=== PATIENT | male | born 1970 | race Caucasian/White ===

== ENCOUNTER 2018-03-15 15:32 | Inpatient (IN) ==
--- NOTE | 2018-03-15 15:44 | Emergency Department Note ---
Disposition Clinical Impression: Acute occlusion of artery Disposition: Admitted As Inpatient Condition: Serious General Adult HPI - General Stated complaint: DVT Leg Time Seen by Provider: 03/15/18 15:32 - Related Data Allergies Allergy/AdvReac Type Severity Reaction Status Date / Time No Known Allergies Allergy Verified 02/11/18 21:12 Past Medical History - Past Medical History Medical history: Reports: non-contributory - Social History Smoking Status: Current every day smoker Smokeless Tobacco Status: No Alcohol use: Reports: occasionally Drug use: Reports: none Attestation Statement - Attestation Attestation: I examined this patient and my medical decision-making was reviewed with the Resident Physician. I agree with the documented findings, disposition and treatment plan as described except to the extent set forth below. 3-vessel acute LE arterial occlusion sent from [facility], accepted by Dr. Cordoba who asked the pt be brought to the ED to expedite the process. Hospitalist notified, he is on a heparin drip, is npo. Dr. Cordoba plans to take him to the OR from the ED.
[2018-03-15] MEDS ORDERED: *HR* FentaNYL (PF) 100 MCG/2 ML VIAL IVP ONE (15:56)
--- NOTE | 2018-03-15 15:57 | Emergency Department Note ---
Disposition Clinical Impression: Acute occlusion of artery Disposition: Admitted As Inpatient Condition: Serious Forms: ED Satisfaction Letter Time of Disposition: 16:15 Extremity Problem HPI - General Chief complaint: ED Extremity Problem,Nontraumatic Stated complaint: DVT Leg Time Seen by Provider: 03/15/18 15:32 Source: patient, EMS Mode of arrival: ambulatory Limitations: no limitations Nursing Notes Reviewed: Yes Vital Signs Reviewed: Yes - History of Present Illness HPI Narrative: I have re-performed and reviewed the history documented by the medical student, and I confirm its accuracy except as noted below Pain Scale: 10 - Related Data Allergies Allergy/AdvReac Type Severity Reaction Status Date / Time No Known Allergies Allergy Verified 02/11/18 21:12 All systems ED: reviewed and negative except as stated. Constitutional: Denies: fever Cardiovascular: Denies: chest pain Respiratory: Denies: cough, dyspnea Gastrointestinal: Denies: abdominal pain, nausea, vomiting, diarrhea Musculoskeletal: Reports: myalgia (Left leg pain) Integumentary: Denies: rash Neurological: Denies: headache, weakness, numbness, paresthesias Past Medical History - Past Medical History Attestation: Yes The following information was validated with the patient. Source: patient Medical history: Reports: non-contributory - Social History Smoking Status: Current every day smoker Smokeless Tobacco Status: No Alcohol use: Reports: occasionally Drug use: Reports: none Physical Exam - General Limitations: no limitations General appearance: alert, in no apparent distress - Head Head exam: atraumatic, normocephalic, normal inspection - Eye Eye exam: Present: normal appearance, PERRL, EOMI - ENT ENT exam: normal exam, normal oropharynx, mucous membranes moist - Neck Neck exam: Present: normal inspection, full ROM, trachea midline - Chest Chest inspection: Present: normal inspection, symmetric chest wall rise - Respiratory Respiratory exam: Present: normal lung sounds bilaterally - Cardiovascular Cardiovascular exam: Present: regular rate, normal rhythm, normal heart sounds - Extremities Exam Extremities exam: Present: other (Left lower extremity cool, pulses PT and DP absent. Pain to palpation of the calf, popliteal fossa on left.) - Neurological Exam Neurological exam: Present: alert, oriented X3. Absent: motor sensory deficit - Psychiatric Psychiatric exam: Present: normal affect, normal mood - Skin Skin exam: Present: warm, dry, intact, normal color Course Course Narrative: Imaging from outside facility shows occlusion of the left arterial supply of the left lower extremity. Dr. Cordoba with vascular surgery is aware and was consulted by outside facility. He has been paged upon patient's arrival. Outside hospital started heparin drip. Dr. Cordoba will come to bedside and see the patient and plans to take him to a large. Patient has been made nothing by mouth status at this time. He was given fentanyl for pain control. No additional intervention or labs requested by vascular at this time. Patient has been admitted to the hospitalist at this time. Patient will go straight to the OR from the emergency room and then to Hospital floor. Vital Signs Temperature 98.6 F 03/15/18 15:51 Pulse Rate 89 03/15/18 15:51 Respiratory Rate 16 03/15/18 15:51 Blood Pressure 137/104 03/15/18 15:51 O2 Sat by Pulse Oximetry 100 03/15/18 15:51 Temperature 98.6 F 03/15/18 15:51 Pulse Rate 89 03/15/18 15:51 Respiratory Rate 16 03/15/18 15:51 Blood Pressure 137/104 03/15/18 15:51 O2 Sat by Pulse Oximetry 100 03/15/18 15:51 Oxygen Delivery Oxygen Delivery Room Air Extremity Problem, Nontraumati - MDM Narrative Medical decision making narrative: Imaging from outside facility shows occlusion of the left arterial supply of the left lower extremity. Dr. Cordoba with vascular surgery is aware and was consulted by outside facility. He has been paged upon patient's arrival. Outside hospital started heparin drip. Dr. Cordoba will come to bedside and see the patient and plans to take him to a large. Patient has been made nothing by mouth status at this time. He was given fentanyl for pain control. No additional intervention or labs requested by vascular at this time. Patient has been admitted to the hospitalist at this time. Patient will go straight to the OR from the emergency room and then to Hospital floor. - Medical Records Medical records reviewed: Yes I reviewed the patient's medical records. S.B.A.R. - S.B.A.R. Situation: Demographics, MOA Background: Presenting Complaint, Relevant PMH, Meds, & Allergies Assessment: Vital Signs, Course and respsone to treatment, Exam Concerns, Patient/Family Expectation, Pertinant Lab Results Recommendation: Barrier(s) to disposition, Recommendation based on pending studies, treatments, or consults Autumn Report Given to: Dr. Yi Leyva Repor Time: 16:15
--- NOTE | 2018-03-15 16:00 | Emergency Department Note ---
Disposition Clinical Impression: Acute occlusion of artery Disposition: Admitted As Inpatient Condition: Fair General Adult HPI - General Stated complaint: DVT Leg Time Seen by Provider: 03/15/18 15:32 - History of Present Illness HPI Narrative: Erasmo is a 47 YO M with a PMH significant for lumbar spinal fusion and sciatica who presents with a chief complaint of pain in the left lower extremity. History comes from the patient and EMS. Erasmo has had pain in his left foot and calf for the last 2-3 weeks. He describes this pain as a sharp, shooting pain that is made worse with motion of his toes or ankle. during this time period Erasmo thought that his pain was secondary to sciatica, and he did not seek further treatment until the pain became unbearable today. He states that during this time his toes were "like icicles" and would not warm up even when soaking in warm water. He presented to an [facility] facility where distal pulses in his left foot could not be appreciated on palpation and were only faintly audible on doppler. A CTA with runoff was performed which revealed: occlusion of the posterior tibial occlusion at its origin, occlusion of the peroneal artery at the mid calf, occlusion of the anterior tibial artery at the proximal calf. As there was no vascular surgery availability at [facility], was heparinized and transferred to [facility] for further evaluation and treatment. Both the admitting hospitalist and the vascular surgeon were notified of this patient prior to arrival. On arrival, Erasmo admitted to continued exquisite pain in his left lower extremity. He denies any other symptoms including fever, chills, nausea, vomiting, chest pain or shortness of breath. Onset (ago): week(s) Location: left, lower extremity Pain Severity: severe Quality: aching, sharp Consistency: constant Improves with: nothing Worsens with: movement Associated symptoms: Denies: confusion, chest pain, cough, headaches, shortness of breath, syncope Treatments Prior to Arrival: other (Heparin bolus and drip) - Related Data Allergies Allergy/AdvReac Type Severity Reaction Status Date / Time No Known Allergies Allergy Verified 02/11/18 21:12 Constitutional: Reports: as per HPI. Denies: fever, chills, weakness ENT ED: Denies: congestion Cardiovascular: Denies: chest pain, palpitations, syncope Respiratory: Denies: cough, sputum production Gastrointestinal: Denies: abdominal pain, nausea, vomiting Genitourinary: Denies: urgency, dysuria, frequency Musculoskeletal: Reports: arthralgia (pain with movement of the joints of the left foot and ankle), myalgia Integumentary: Denies: rash Neurological: Reports: numbness (numbness in the left foot.). Denies: headache, weakness Past Medical History - Past Medical History Medical history: Reports: non-contributory - Social History Smoking Status: Current every day smoker Smokeless Tobacco Status: No Alcohol use: Reports: occasionally Drug use: Reports: none Physical Exam - General Limitations: no limitations General appearance: alert, in no apparent distress - Head Head exam: atraumatic, normocephalic, normal inspection - Eye Eye exam: Present: normal appearance, PERRL, EOMI - ENT ENT exam: normal exam, normal oropharynx, mucous membranes moist - Neck Neck exam: Present: normal inspection, full ROM, trachea midline - Chest Chest inspection: Present: normal inspection, symmetric chest wall rise - Respiratory Respiratory exam: Present: normal lung sounds bilaterally - Cardiovascular Cardiovascular exam: Present: regular rate, normal rhythm, normal heart sounds - Abdominal Exam Abdominal exam: Present: soft, Non-Tender. Absent: tenderness, distention, guarding, rebound, rigidity - Extremities Exam Extremities exam: Present: tenderness, other (left foot is cold, pulseless and tender to palpation. No ischemic necrosis noted. ). Absent: normal capillary refill - Neurological Exam Neurological exam: Present: alert, oriented X3, CN II-XII intact. Absent: motor sensory deficit - Psychiatric Psychiatric exam: Present: normal affect, normal mood (as described above. ) Course Course Narrative: Plan is for near direct admission to the operating room for likely vascular bypass procedure. Erasmo understands the plan of care and is amenable to the plan. Will treat his pain with IV fentanyl. Vital Signs Temperature 98.6 F 03/15/18 15:51 Pulse Rate 89 03/15/18 15:51 Respiratory Rate 16 03/15/18 15:51 Blood Pressure 137/104 03/15/18 15:51 O2 Sat by Pulse Oximetry 100 03/15/18 15:51 Temperature 98.6 F 03/15/18 15:51 Pulse Rate 89 03/15/18 15:51 Respiratory Rate 17 03/15/18 16:42 Blood Pressure 133/90 03/15/18 16:42 O2 Sat by Pulse Oximetry 100 03/15/18 16:42 Oxygen Delivery Oxygen Delivery Room Air
[2018-03-15] MEDS ORDERED: Albuterol 2.5 MG/3 ML NEBULIZER IH ONE (16:19)
[2018-03-15] MEDS ORDERED: Dexamethasone 4 MG/ML VIAL ONE ×2 (16:21→17:58)
[2018-03-15] MEDS ORDERED: Lidocaine -MPF 2% 2 ML VIAL ONE ×2 (16:21→17:58)
[2018-03-15] MEDS ORDERED: Ondansetron 4 MG/2 ML VIAL ONE ×2 (16:21→17:58)
[2018-03-15] MEDS ORDERED: *HR* Succinylcholine 200 MG/10 ML VIAL IVP ONE ×2 (16:21→17:58)
[2018-03-15] MEDS ORDERED: *HR* FentaNYL (PF) 100 MCG/2 ML VIAL ONE ×3 (16:21→17:57)
[2018-03-15] MEDS ORDERED: Lidocaine -MPF 4% 5 ML AMPUL ONE (16:21)
[2018-03-15] MEDS ORDERED: *HR* Propofol 200 MG/20 ML VIAL IVP ONE ×3 (16:21→20:38)
[2018-03-15] MEDS ORDERED: *HR* Midazolam HCl 2 MG/2 ML VIAL ONE (16:22)
--- NOTE | 2018-03-15 16:23 | Anesthesia Evaluation PreOp ---
Date of Encounter: 03/15/18 Time of Encounter: 16:30 - Past History Planned Operation: LLE Thrombectomy/Cutdown Cardiac History: Denies any Significant Hx Pulmonary History: Smoker BACK SEWER History: Other (Spinal Fusion Sciatica) Other Medical History: Denies Any Significant HX Anesthesia History: No Prior Anesthetic Complications Alcohol Use: occasionally Drug use: none Medications and Allergies Allergy/AdvReac Type Severity Reaction Status Date / Time No Known Allergies Allergy Verified 02/11/18 21:12 - Meds/Allergy Pre-op Review Medications Reviewed: Yes Allergies Reviewed: Yes Beta Blockers on Current Med List: No Anesthesia Exam O2 Sat Height 1.75 m Weight 74.843 kg O2 Sat by Pulse Oximetry 100 Vital Signs Temp Pulse Resp BP Pulse Ox 98.6 F 89 16 137/104 100 03/15/18 15:51 03/15/18 15:51 03/15/18 15:51 03/15/18 15:51 03/15/18 15:51 Height: 5'9 Weight: 165 lbs NPO (# of Hours): MN Pain Scale: 2 - HEENT Pupil (Motor): Pupils equal, EOMI Mallampati: II Teeth: Poor dentition Oral Opening: Greater than 3 - BACK SEWER LOC: Oriented BACK SEWER Motor: Normal RUE, Normal LUE, Normal RLE, Normal LLE, Normal Face BACK SEWER Sensory: Normal: RUE, LUE, RLE, Face, Deficit: LLE - Cardiac Rhythm: Regular Murmur: None JVD: No Carotid Bruit: No - Pulmonary Breath Sounds: bilateral Clear Respiratory Effort: Symmetrical Anesthesia Assess/Plan ASA Score: 2, E Level of consciousness: Cooperative Anesthetic Plan: General Autologous Blood: No Monitoring Plan: Standard Monitors Recovery Plan: PACU (Discussed GA, agrees to proceed)
--- NOTE | 2018-03-15 16:30 | Vascular/Endovasc Consult Note ---
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 By CT scan from outside hospital report indicates functional occlusion of proximal tibial system indicating embolization to the distal popliteal and proximal tibial system. Patient has limb threatening ischemia. Because of the severity of his ischemia recommended emergency surgery. An IV heparin drip has been initiated at the outside hospital and this will continue during surgery. Patient will go to the operating room for popliteal and tibial embolectomy. Anticipate patient has either an atrial source of the embolus or a thoracic aortic source of the embolus. Further workup per medical service. (2) Tobacco abuse Current Visit: Yes Status: Acute Patient has long-standing history of tobacco abuse - History of Present Illness Consult date: 03/15/18 Consult reason: Ischemic left leg Chief complaint: Left foot and leg pain History of present illness: Mr. Teresa is a 47 year old male Was referred from [facility] emergency room for evaluation of left lower extremity ischemia. The patient presented there earlier today with significant and unremitting left lower extremity pain particularly in the left foot and lower leg. The patient states that this started approximately 2 weeks ago. It is been progressive. He is unable to rest or sleep. He has pain 24 hours a day. He had had previous spinal surgery and thought initially that this was due to a spinal condition. He denies any previous lower extremity vascular concerns. The patient denies any history of claudication or previous embolization. The patient had no difficulties or limitations in his walking prior to this event. The patient denies any history of coagulation disorder. He denies any family history of coagulation disorder. He denies any history of arrhythmia or cardiac problems. At the referring emergency room the patient had an EKG that was normal and without signs of arrhythmia. He had had a number of blood tests were essentially unremarkable. He had a CT scan of the abdominal aorta with bilateral lower extremity runoff. The images were unfortunately not sent with the patient's do not have them to review personally but I have the report. The report states that the left trifurcation is occluded. This involves the proximal to midportion of the calf. The popliteal artery proximal to this is patent. There are no abnormal findings in the right lower extremity. The patient denies any symptoms in the right lower extremity. Other findings on the CT scan demonstrate sigmoid diverticulosis. A 5.2 cm right inguinal lymphadenopathy versus fluid collection. Moderate atherosclerotic calcification involving the infrarenal aorta. The patient is an active tobacco smoker and smokes at least 1-1/2 packs of cigarettes a day. Past Med Surg Social Fam HX - Past Medical History Medical history: non-contributory - Past Surgical History Surgical History: orthopedic, other (Spine surgery) - Social History Smoking Status: Current every day smoker Smokeless Tobacco Status: No Alcohol use: occasionally Drug use: none Medications and Allergies Allergy/AdvReac Type Severity Reaction Status Date / Time No Known Allergies Allergy Verified 02/11/18 21:12 All Systems Review: The remainder of the systems were reviewed and are negative Exam Vital Signs, Last 4 Hours Temp Pulse Resp BP Pulse Ox 03/15/18 15:51 98.6 F 89 16 137/104 100 General: Present: Conversant, Other (Patient is seen in the emergency room at bed #7. He is in a semi- position on the emergency room cart.) HEENT: Present: Atraumatic, Normocephaly, Trachea midline Neck: Absent: JVD, Left Carotid bruit, Right Carotid bruit, Midline deformity, Tracheal deviation Cardiac: Present: Reg Rate and Rhythm, Normal S1 and S2, No Murmur. Absent: Irregular Rhythm Lungs: Present: Normal Breath Sounds, No Wheeze, Rales, Rhonchi Neuro: Present: Alert and responsive, No focal deficits noted, Cranial nerves grossly intact, Other (Painful left calf and foot and ankle to light touch and manipulation.) Vascular: Present: Normal capillary refill, Pulse, absent (Patient has no palpable left pedal pulses.), Pulse, normal (On right lower extremity and lower extremity), Cyanosis, Color/Temperature (Left foot and left foot is cool.). Absent: Edema, Surgical incisions, Amputation(s) Skin: Present: No rashes noted on visualized skin. Absent: Wound/ulcer(s) Consult Discharge Plan - Plan Referrals: NONE,PCP [Primary Care Provider] -
[2018-03-15] MEDS ORDERED: Heparin 1,000 UNITS/500 mL 500 ML ONE (16:33)
--- NOTE | 2018-03-15 17:16 | Internal Med History&Physical ---
Date of Encounter: 03/15/18 Time of Encounter: 16:30 Assessment and Plan (1) Ischemic pain of left foot Current visit: Yes Status: Acute Patient will be taken to or by surgeon for intervention. (2) Acute occlusion of artery Current visit: Yes Status: Acute Patient will be taken to [facility] surgeon to or for intervention. (3) HTN (hypertension) Current visit: Yes Status: Acute In process of obtaining [facility] [place] to continue blood pressure medications. Qualifiers: Hypertension type: essential hypertension Qualified Code(s): I10 - Essential (primary) hypertension (4) HLD (hyperlipidemia) Current visit: Yes Status: Acute In process of obtaining patient's medication list to start patient on medications. Qualifiers: Hyperlipidemia type: unspecified Qualified Code(s): E78.5 - Hyperlipidemia, unspecified (5) Tobacco abuse Current visit: Yes Status: Acute Nicotine patch as discussed with the patient. Smoking cessation counseling performed. Patient agrees not to smoke. DVT prophylaxis to be determined based on postop anticoagulation use. Internal Medicine - H&P: HPI Chief complaint: l Leg/foot pain Admitted From: Intrahospital Transfer Plans for Post Hospital Care: Home History of present illness: Mr. Teresa is a 47 year old male with a previous medical history off hypertension, hypercholesterolemia, smoking, nondiabetic who was transferred from [facility] with complaints of 2 weeks of progressive left leg and foot pain with numbness and coolness. The patient states that he attributed these symptoms to his chronic Jordin and did not seek early medical intervention. He went to [facility] today where they found he had vascular occlusion proximal to the left leg trifurcation arteries. The patient had labs at the referring ER where the EKG was normal and the white count was high at 13.6. The renal panel was unremarkable with a slightly elevated calcium of 10.3. The patient denies any chest pain or shortness of breath. He denies any previous adverse events to anesthesia. The patient is a one pack per day smoker. Past Med Surg Social Fam HX - Past Medical History Medical history: non-contributory - Past Surgical History Surgical History: orthopedic, other (Spine surgery) - Social History Smoking Status: Current every day smoker Smokeless Tobacco Status: No Alcohol use: occasionally Drug use: none Internal Medicine - H&P: Meds Allergy/AdvReac Type Severity Reaction Status Date / Time No Known Allergies Allergy Verified 02/11/18 21:12 All Systems PM: A 10-system review of systems was performed and is negative for pertinent findings except as documented above in the HPI. - Constitutional Vitals: Temp Pulse Resp BP Pulse Ox 98.6 F 89 17 133/90 100 03/15/18 15:51 03/15/18 15:51 03/15/18 16:42 03/15/18 16:42 03/15/18 16:42 General appearance: Present: mild distress, A&O X 3 - Head Head exam: Present: atraumatic, normocephalic - Eye Eye exam: Present: PERRL, conjuntiva pink, sclera anicteric Pupils: Present: PERRL - Neck Neck exam general surgery: Present: supple, trachea midline. Absent: lymphadenopathy - Respiratory Respiratory exam: Present: decreased breath sounds, CTAB. Absent: accessory muscle use, rales, rhonchi, wheezes - Cardiovascular Cardiovascular exam: Present: RRR, +S1, +S2. Absent: diastolic murmur, systolic murmur - GI/Abdominal GI/Abdominal exam: Present: normal bowel sounds, soft, no peritoneal signs. Absent: distended, tenderness - Extremities Exam Additional comments: The left foot and ankle pulses could not be assessed with certainty due to patient being restless in that foot. The toes look slightly cyanotic and are very cool to touch. The right foot exam is within normal limits.. - Neurological Exam Neurological exam: Present: CN II-XII intact, oriented X3, no focal deficits. Absent: pronater drift, facial droop, speech deficit Internal Med - H&P Results - Labs Labs: Labs as described above, these were done at [facility].
[2018-03-15] MEDS ORDERED: Acetaminophen IV 1,000 MG/100 ML INFUS..BTL ONE (17:20)
[2018-03-15] MEDS ORDERED: *HR* Rocuronium Bromide 50 MG/5 ML VIAL ONE (17:58)
[2018-03-15] MEDS ORDERED: *HR* Promethazine 25 MG/ML VIAL IVP PRN (18:08)
[2018-03-15] MEDS ORDERED: *HR* FentaNYL (PF) 100 MCG/2 ML VIAL IVP PRN (18:08)
[2018-03-15] MEDS ORDERED: *HR* OxyCODONE Immed Rel 5 MG TABLET PO PRN (18:08)
[2018-03-15] MEDS ORDERED: *HR* Morphine 10 MG/ML VIAL ONE (19:33)
--- NOTE | 2018-03-15 20:47 | Operative Note ---
Date of procedure: 03/15/18 Pre-op diagnosis: limb threatening ischemia of left lower extremity Post-op diagnosis: same Procedure: left tibioperoneal trunk endarterectomy with bovine patch angioplasty 2 and 3 Turkish catheter embolectomy of left anterior tibial, posterior tibial, and peroneal arteries Complications: 0 Anesthesia: KAYLAA Surgeon: Eliud Cordoba Was there an elementary assistant principal present: No Estimated blood loss (cc): 200 Specimen: yes Condition: stable Disposition: PACU Procedure in Detail: History Mr. Erasmo Teresa is a 47-year-old white male that was seen in emergency consultation in the emergency room earlier this afternoon because of limb t hreatening ischemia of the left lower extremity. Patient states that about 2 weeks ago he began having symptoms of the left leg and this has been progressive. It is been so painful he cannot rest or sleep. He was seen originally today at [facility] in [place]. He was referred to [place] for further care because a CTA scan was obtained which showed occlusion of the tibial vessels of the left lower extremity. The patient does not have any obvious history or explanation for this ischemia. He denies any right lower extremity symptoms and had no antecedent history of claudication. Procedure After informed consent was obtained the patient was taken from the emergency room to the operating room. General endotracheal anesthesia was established. The left lower extremity was sterilely prepped and draped. A timeout protocol was observed. An incision was made at the proximal calf below the knee. Dissection was carried down to the popliteal artery and its bifurcation area the popliteal artery was soft and had an excellent pulse. There are no pulses distally. The tibial peroneal trunk was distended and bluish in color. Control obtained of all 3 of the tibial vessels. Heparin which had been started at [facility] and had been continued in the emergency room was also being continued in the operating room. An additional bolus 1000 units of heparin was given now and then the below-knee popliteal artery was clamped. A longitudinal arteriotomy was made over the tibial peroneal trunk. This vessel was distended. Evaluation here revealed a reddish brownish material that appeared a combination of both acute and chronic clot as well as organized material. It is not clear whether this represents an embolus or thrombus but due to his history I would assume that this is an embolic event. An endarterectomy was then performed and the arteriotomy need be a extended. The entire length of the tibial peroneal trunk was open. The thrombus and other material was then endarterectomized and submitted for specimen. A 2 and 3 Turkish Freida catheter with an unemployed. These were selectively placed into the anterior tibial, posterior tibial, and peroneal arteries. A large amount of both chronic and fresh thrombus and organized material was removed from the vessels. It should be noted that the catheter could be. Past to the level of the foot and both anterior tibial and posterior tibial arteries. The peroneal artery catheter could be passed to the level of the terminus of the peroneal artery at the malleolar level. Backbleeding was established from both anterior tibial and peroneal artery. There is no backbleeding established from the Yadi tibial artery. These areas were flushed. A second attempt at embolectomy was made. With this accomplished a bovine pericardial patch angioplasty was then performed. This was sewn into position using 2 6-0 Prolene sutures over the tibial peroneal trunk. After appropriate backbleeding and flushing the popliteal artery was opened. Excellent inflow and a strong normal pulse was observed through the popliteal artery. Doppler signals were then made. Strong monophasic signals were identified in all the tibial vessels in the level of the wound. However, there were no Doppler signals identified at the level of the ankle. The wound was then irrigated. Marcaine was infiltrated into the wound. The wound was then closed in layers using absorbable suture. There were no intraoperative complications. The patient tolerated procedure well. The patient was taken from the operating room to the recovery room following surgery. The IV heparin drip will be continued overnight. Patient will have an echocardiogram tomorrow. There is nothing further from a vascular surgery perspective that can be offered to this patient as the embolic or thrombotic event appears to be rather diffuse and subacute to chronic. It should be noted that there were no findings of atherosclerotic disease in the vessels observed during surgery.
[2018-03-15] MEDS ORDERED: Ondansetron 4 MG/2 ML VIAL IVP PRN (21:20)
[2018-03-15] MEDS ORDERED: Naloxone 0.4 MG/ML INJ IVP PRN (21:20)
--- NOTE | 2018-03-15 21:24 | Anesthesia Evaluation Post Op ---
Date of Encounter: 03/15/18 Time of Encounter: 21:23 - Discharge PostOp Status: Transfer Patient to floor (Patient's vital signs have been reviewed. Patient is stable postoperatively and has adequately recovered from anesthesia. Patient is determined to have stable airway patency and respiratory function including respiratory rate and oxygen saturation. Patient has a stable heart rate, blood pressure and adequate hydration. Patients mental status is acceptable. Patients temperature is appropriate. Pain and nausea are adequately controlled.)
[2018-03-15] MEDS: *HR* OxyCODONE Immed Rel 5 MG TABLET PO PRN (21:50)
[2018-03-15] MEDS ORDERED: Perflutren Lipid Microsphere 1.3 ML in 0.9 % Sodium Chloride 8.7 ML IVP ONE (22:41)
[2018-03-16] MEDS ORDERED: *HR* Heparin 5,000 UNIT/ML VIAL IVP PRN ×2 (00:52)
[2018-03-16] MEDS: Heparin 25,000 UNIT/500 ML D5W 25,000 UNIT/500 ML BAG IVC SCH ×2 (02:54→07:43)
[2018-03-16] MEDS: *HR* OxyCODONE Immed Rel 5 MG TABLET PO PRN ×3 (04:36→18:58)
[2018-03-16] MEDS: Nicotine 21 MG PATCH.TD24 TD SCH (07:41)
[2018-03-16] MEDS: *HR* HYDROcodone/Acet 5/325 mg TABLET PO PRN ×3 (07:42→22:17)
[2018-03-16] MEDS: Acetaminophen 325 MG TABLET PO PRN (08:44)
[2018-03-16] MEDS ORDERED: Nicotine 21 MG PATCH.TD24 TD SCH (09:00)
--- NOTE | 2018-03-16 09:50 | Internal Med Progress Note ---
Hospitalist Progress Note - Encounter Date of Encounter: 03/16/18 Time of Encounter: 08:30 - Subjective Interval History: Patient seen and examined today. He is feeling better than yesterday. He has bearable pain in the left foot after surgery. - Exam Vitals: Temp Pulse Resp BP Pulse Ox 97.4 F L 95 16 99/80 98 03/16/18 07:49 03/16/18 07:49 03/16/18 07:49 03/16/18 07:49 03/16/18 08:00 Exam: General appearance: Present: mild distress, A&O X 3 - Head Head exam: Present: atraumatic, normocephalic - Eye Eye exam: Present: PERRL, conjuntiva pink, sclera anicteric Pupils: Present: PERRL - Neck Neck exam general surgery: Present: supple, trachea midline. Absent: lymphadenopathy - Respiratory Respiratory exam: Present: decreased breath sounds, CTAB. Absent: accessory muscle use, rales, rhonchi, wheezes - Cardiovascular Cardiovascular exam: Present: RRR, +S1, +S2. Absent: diastolic murmur, systolic murmur - GI/Abdominal GI/Abdominal exam: Present: normal bowel sounds, soft, no peritoneal signs. Absent: distended, tenderness - Extremities Exam Additional comments: The left foot and ankle pulses are present and 1+. The left toes look normal in color and normal temperature normal neurovascular. The left leg has a dressing over the incision and no active bleeding.. The right foot exam is within normal limits.. - Neurological Exam Neurological exam: Present: CN II-XII intact, oriented X3, no focal deficits. Absent: pronater drift, facial droop, speech deficit - Assessment and Plan (1) Ischemic pain of left foot Current Visit: Yes Status: Acute Assessment and Plan: Improved after vascular surgery. Continue current medications. Continue IV heparin and cefoxitin. (2) Acute occlusion of artery Current Visit: Yes Status: Acute Assessment and Plan: Status post left tibioperoneal trunk endarterectomy with bovine patch angioplasty 2 and 3 Omani catheter embolectomy of left anterior tibial, posterior tibial, and peroneal arteries. Patient doing well. (3) HTN (hypertension) Current Visit: Yes Status: Acute Assessment and Plan: Continue to monitor since patient has low normal blood pressure. No antihypertensives needed. (4) HLD (hyperlipidemia) Current Visit: Yes Status: Acute Assessment and Plan: Patient was previously taking atorvastatin 80 mg per day. Would restart if cleared by vascular surgeon. (5) Tobacco abuse Current Visit: Yes Status: Acute Assessment and Plan: Currently patient absent. Not needing nicotine replacement therapy. - Time Spent with Patient Total time spent is greater than 50% in coordination of care (as documented) at patient's floor/unit and/or counseling patient: Internal Medicine: Result - Impressions Impressions Echocardiogram 03/15/18 20:38 Impressions: LVEF 60%. Normal LV chamber size, wall thickness and function. Mild left ventricular diastolic dysfunction. Normal right ventricular structure and function. No evidence of pulmonary hypertension. No significant valvular dysfunction. No cardiac source of emboli identified. Findings: Study Quality * Technically adequate exam. ECG Findings * Normal sinus rhythm. Left Ventricle * LVEF 60%. * Normal LV chamber size, wall thickness and function. * Mild left ventricular diastolic dysfunction. Right Ventricle * Normal right ventricular structure and function. Left Atrium * Normal left atrial size. Right Atrium * Normal right atrial size. Interatrial Septum * Interatrial septum not well evaluated. Aortic Valve * Aortic valve not well visualized. * No aortic regurgitation. * No aortic stenosis. Mitral Valve * Normal mitral valve structure and function. * No mitral regurgitation. * No mitral stenosis. Tricuspid Valve * Normal tricuspid valve structure and function. * Trace tricuspid regurgitation. * No evidence of pulmonary hypertension. Pulmonic Valve * Pulmonic valve not well visualized. * No pulmonic regurgitation. Aorta * Normally sized aortic root. Pericardium * The pericardium appears normal. IVC * Normal IVC dimensions and inspiratory collapse. Pulmonary Artery * Normal visualized portions of the main pulmonary artery. Consult Discharge Plan - Plan Referrals: NONE,PCP [Primary Care Provider] - (3) HTN (hypertension) Qualifiers: Hypertension type: essential hypertension Qualified Code(s): I10 - Essential (primary) hypertension (4) HLD (hyperlipidemia) Qualifiers: Hyperlipidemia type: unspecified Qualified Code(s): E78.5 - Hyperlipidemia, unspecified
[2018-03-16] MEDS ORDERED: Isovue-370 500 ML INFUS..BTL IV ONE (12:50)
[2018-03-16 13:34] LABS: Basophils # 0.1 K/mcL (0.0-0.2); Basophils % 0.4 %; Eosinophils # 0.2 K/mcL (0.0-0.6); Eosinophils % 0.7 %; Hematocrit 36.5 % (37.5-50.1); Hemoglobin 11.9 g/dL (12.9-16.9); Immature Granulocytes % 0.6 % (0-4); Lymphocytes # 5.1 K/mcL (0.6-4.6); Lymphocytes % 23.4 %; Mean Corpuscular HGB Conc 32.6 g/dL (31.6-35.5); Mean Corpuscular Hemoglobin 27.5 pg (28.0-33.3); Mean Corpuscular Volume 84.3 fL (83.0-100.0); Mean Platelet Volume 9.2 fL (9.4-12.4); Monocytes # 1.3 K/mcL (0.0-1.3); Monocytes % 6.1 %; Neutrophils # 14.9 K/mcL (1.6-8.9); Platelet Count 432 K/mcL (140-400); Red Blood Count 4.33 M/mcL (4.19-5.50); Red Cell Distribution Width 13.3 % (11.5-14.5); Segmented Neutrophils % 68.8 %
[2018-03-16 13:52] LABS: BUN/Creatinine Ratio 15 (6-26); Blood Urea Nitrogen 14 mg/dL (6-20); Calcium 9.4 mg/dL (8.6-10.3); Carbon Dioxide 27 mEq/L (23-29); Chloride 102 mEq/L (98-107); Glucose 127 mg/dL (70-105); Osmolality,Calculated 284 (280-300); Sodium 136 mEq/L (136-145); eGFR For Non-African Americans > 60 (> 60)
--- NOTE | 2018-03-16 16:30 | Vascular/[facility] Progress Note ---
Date of Encounter: 03/16/18 Time of Encounter: 12:00 - Assessment and plan (1) Ischemic pain of left foot Current Visit: Yes Status: Acute Patient's vascular status is improved but is not normal to the left foot. The color and temperature and Doppler signals are better than preop. However on the basis of the anatomic findings there is still residual thrombus in the distal tibial system. Of note at the time of surgery I could identify no obvious etiology for the thrombotic event. There was no popliteal artery aneurysm, vascular dissection, or significant arterial stenosis. There was no calcification of the vessel. The vessel itself was relatively soft without findings of intraluminal atherosclerotic disease. At this point etiology of this thrombotic episode remains unknown and for the time being would still be viewed as an embolic event. I've ordered a CT angiogram of the chest to rule out occult thoracic disease or aortic ulcers. If this examination is unremarkable I would recommend consultation with hematology for a thrombophilia evaluation. Patient would benefit from indefinite anticoagulation as an outpatient. I would not convert to an oral agent until after the patient is seen by hematology. Due to the patient's limitation in his ambulation I've also ordered physical therapy consultation. Dr Schmitt is covering vascular surgery call for this weekend. (2) Tobacco abuse Current Visit: Yes Status: Acute Patient has long-standing history of tobacco abuse - Subjective Interval history: Patient is postoperative day 1 from an extensive tibial artery embolectomy and tibial peroneal trunk endarterectomy. Patient states that he still has pain in his leg though it is better than what it was prior to surgery. He feels his left foot is warmer. He has difficulties bearing weight. An echocardiogram was performed last night after surgery which was negative for obvious source of embolus or cardiac pathology. Therefore have recommended a CT angiogram of the chest be performed. If the CT angiogram of the chest is negative I would recommend consultation with hematology for a thrombophilia workup. Vital Signs, Last 4 Hours Temp Pulse Resp BP Pulse Ox 03/16/18 16:15 98.2 F 95 18 140/96 100 - Physical Examination General: Present: Conversant HEENT: Present: Atraumatic Neck: Absent: JVD Neuro: Present: Alert and responsive Vascular: Present: Normal capillary refill, Pulse, absent (Patient has no palpable pulses at the left ankle.), Pulse, normal (Palpable left popliteal and femoral pulse), Color/Temperature (The color and temperature of the left foot is markedly improved from preop. The patient has 2-3 second capillary refill.), Surgical incisions (Patient has a dry dressing over the left below-knee popliteal incision), Other (Patient has Doppler signals present over the peroneal, dorsalis pedis, and posterior tibial artery. The posterior tibial artery signal is the weakest signal of the 3.) Skin: Present: No rashes noted on visualized skin Results 03/16/18 13:01 03/16/18 13:01 Lab Results, Last 24 hours 03/16/18 03/16/18 13:01 13:01 WBC 21.6 H Hgb 11.9 L Hct 36.5 L Plt Count 432 H Sodium 136 Potassium 4.0 Chloride 102 Carbon Dioxide 27 BUN 14 Creatinine 0.93 Glucose 127 H Calcium 9.4 - Imaging / Other Tests Echo: report reviewed (No structural abnormalities of the cardiac valves or cardiac chambers. No obvious explanation for embolic event to the left lower extremity on echocardiogram.) Consult Discharge Plan - Plan Referrals: NONE,PCP [Primary Care Provider] -
[2018-03-17 01:34] LABS: Basophils # 0.1 K/mcL (0.0-0.2); Basophils % 0.6 %; Eosinophils # 0.2 K/mcL (0.0-0.6); Eosinophils % 1.5 %; Hematocrit 32.9 % (37.5-50.1); Immature Granulocytes % 0.3 % (0-4); Lymphocytes # 3.8 K/mcL (0.6-4.6); Lymphocytes % 26.2 %; Mean Corpuscular HGB Conc 33.4 g/dL (31.6-35.5); Mean Corpuscular Hemoglobin 27.9 pg (28.0-33.3); Mean Corpuscular Volume 83.5 fL (83.0-100.0); Monocytes # 1.2 K/mcL (0.0-1.3); Monocytes % 8.4 %; Neutrophils # 9.1 K/mcL (1.6-8.9); Platelet Count 346 K/mcL (140-400); Red Blood Count 3.94 M/mcL (4.19-5.50); Red Cell Distribution Width 13.4 % (11.5-14.5)
[2018-03-17 01:57] LABS: BUN/Creatinine Ratio 15 (6-26); Blood Urea Nitrogen 13 mg/dL (6-20); Calcium 8.9 mg/dL (8.6-10.3); Carbon Dioxide 24 mEq/L (23-29); Chloride 107 mEq/L (98-107); Cholesterol 176 mg/dL (< 200); Glucose 105 mg/dL (70-105); HDL Cholesterol 44 mg/dL (40-59); LDL Cholesterol,Calculated 108 mg/dL (0-99); Osmolality,Calculated 284 (280-300); Potassium 3.7 mEq/L (3.5-5.1); Sodium 137 mEq/L (136-145); Triglycerides 121 mg/dL (< 150); eGFR For Non-African Americans > 60 (> 60)
[2018-03-17] MEDS: *HR* OxyCODONE Immed Rel 5 MG TABLET PO PRN ×3 (03:11→15:02)
[2018-03-17] MEDS: *HR* HYDROcodone/Acet 5/325 mg TABLET PO PRN ×3 (06:43→20:04)
[2018-03-17] MEDS: Heparin 25,000 UNIT/500 ML D5W 25,000 UNIT/500 ML BAG IVC SCH (06:48)
[2018-03-17] MEDS: Nicotine 21 MG PATCH.TD24 TD SCH (09:03)
[2018-03-17] MEDS: Acetaminophen 325 MG TABLET PO PRN (10:00)
--- NOTE | 2018-03-17 12:31 | Vascular/[facility] Progress Note ---
Date of Encounter: 03/18/18 Time of Encounter: 12:29 - Assessment and plan (1) Ischemic pain of left foot Current Visit: Yes Status: Resolved 47-year-old white male presents was two-week history of ischemic left lower extremity. His echocardiogram was within normal limits. His CT angiogram of the chest was normal. The patient does not have popliteal artery aneurysm. He complains of slight pain around the left knee. He has no pedal pulses but good strong signals as suspect that his left peroneal artery is patent. His foot is well-perfused. He is fully anticoagulated. He does not have a compartment syndrome. I will recommend hematology consultation. The patient will most likely needs to be anticoagulated for life. I will wrap his left leg with an Jose bandage between the toes and the knee. We will get physical therapy to ambulate him with a walker. (2) Tobacco abuse Current Visit: Yes Status: Acute Counseled about smoking cessation. - Subjective Interval history: Status post left tibioperoneal embolectomy for ischemic left lower extremity. The patient denies any pain in his left foot. He is able to move his toes. He is able to flex and extend his left ankle. Vital Signs, Last 4 Hours Temp Pulse Resp BP Pulse Ox 03/17/18 11:43 98.5 F 103 17 122/83 98 - Physical Examination General: Present: No Apparent Distress Cardiac: Present: Reg Rate and Rhythm Lungs: Present: Normal Breath Sounds Neuro: Present: Alert and responsive, Motor nerves grossly intact Vascular: Present: Normal capillary refill, Capillary refill delayed, Pulse, absent, Other (The left calf and foot are warm. There is no dorsalis pedis or posterior tibial pulses. The patient has biphasic Doppler signals.) Skin: Present: No rashes noted on visualized skin Musculoskeletal: Present: Other (The catheter is soft. There is no compartment syndrome.) Results 03/17/18 01:16 03/17/18 01:16 Lab Results, Last 24 hours 03/16/18 03/16/18 03/17/18 13:01 13:01 01:16 WBC 21.6 H 14.4 H Hgb 11.9 L 11.0 L Hct 36.5 L 32.9 L Plt Count 432 H 346 Sodium 136 Potassium 4.0 Chloride 102 Carbon Dioxide 27 BUN 14 Creatinine 0.93 Glucose 127 H Calcium 9.4 03/17/18 01:16 WBC Hgb Hct Plt Count Sodium 137 Potassium 3.7 Chloride 107 Carbon Dioxide 24 BUN 13 Creatinine 0.87 Glucose 105 Calcium 8.9 - Imaging / Other Tests Echo: report reviewed Angiogram: report reviewed CT/CTA: report reviewed - EKG Interpretation EKG results: personally reviewed Consult Discharge Plan - Plan Referrals: NONE,PCP [Primary Care Provider] -
[2018-03-17] MEDS: Aspirin 325 MG TABLET PO SCH (13:26)
--- NOTE | 2018-03-17 17:46 | Internal Med Progress Note ---
Hospitalist Progress Note - Encounter Date of Encounter: 03/17/18 Time of Encounter: 08:00 - Subjective Interval History: Patient seen and examined today. He is feeling better than yesterday. He has bearable pain in the left foot after surgery. Discussed with patient need to stop smoking completely and continuing the cholesterol medicines. Pt c/o ins omnia and requests medicine for it. I did call hematology and talk to Dr. Vaz for consult. He recommended seeing patient as an outpatient since at this point patient is on IV heparin. He recommended discharging the patient on Xarelto. He recommended continuing the IV heparin to close to discharge. He recommended labs such as Factor V Leiden, Lupus anticoag profile, Beta 2 Glycoprotein, Prothrombi [id number] Mutation which he will need at the out pt visit. These have been ordered. - Exam Vitals: Temp Pulse Resp BP Pulse Ox 98.1 F 103 20 147/95 100 03/17/18 14:58 03/17/18 14:58 03/17/18 14:58 03/17/18 14:58 03/17/18 14:58 Exam: General appearance: Present: mild distress, A&O X 3 - Head Head exam: Present: atraumatic, normocephalic - Eye Eye exam: Present: PERRL, conjuntiva pink, sclera anicteric Pupils: Present: PERRL - Neck Neck exam general surgery: Present: supple, trachea midline. Absent: lymphadenopathy - Respiratory Respiratory exam: Present: decreased breath sounds, CTAB. Absent: accessory muscle use, rales, rhonchi, wheezes - Cardiovascular Cardiovascular exam: Present: RRR, +S1, +S2. Absent: diastolic murmur, systolic murmur - GI/Abdominal GI/Abdominal exam: Present: normal bowel sounds, soft, no peritoneal signs. Absent: distended, tenderness - Extremities Exam Additional comments: The left foot and ankle pulses are present and 1+. The left toes look normal in color and normal temperature normal neurovascular. The right foot exam is within normal limits.. - Neurological Exam Neurological exam: Present: CN II-XII intact, oriented X3, no focal deficits. Absent: pronater drift, facial droop, speech deficit - Assessment and Plan (1) Ischemic pain of left foot Current Visit: Yes Status: Resolved Assessment and Plan: Status post left tibioperoneal trunk endarterectomy with bovine patch willa oplasty 2 and 3 Jordanian catheter embolectomy of left anterior tibial, posterior tibial, and peroneal arteries. Patient doing well. Cont IV heparin, HLD tx and smoking cessation. (2) Acute occlusion of artery Current Visit: Yes Status: Acute Assessment and Plan: as above. (3) HTN (hypertension) Current Visit: Yes Status: Acute Assessment and Plan: Continue to monitor and tx with IV hydralazine if needed for SBP > 150 mm Hg. (4) HLD (hyperlipidemia) Current Visit: Yes Status: Acute Assessment and Plan: Lipitor (5) Tobacco abuse Current Visit: Yes Status: Acute Assessment and Plan: Advised cessation. NRT. Ambien for insomnia. DVT Prophylaxis: On IV Heparin drip. - Time Spent with Patient Total time spent is greater than 50% in coordination of care (as documented) at patient's floor/unit and/or counseling patient: Internal Medicine: Result - Labs CBC & Chem 7: 03/17/18 01:16 03/17/18 01:16 Labs: Short CBC 03/17/18 Range/Units 01:16 WBC 14.4 H (4.3-11.1) K/mcL Hgb 11.0 L (12.9-16.9) g/dL Hct 32.9 L (37.5-50.1) % Plt Count 346 (140-400) K/mcL Neutrophils # 9.1 H (1.6-8.9) K/mcL BMP 03/17/18 01:16 Sodium 137 Potassium 3.7 Chloride 107 Carbon Dioxide 24 BUN 13 Creatinine 0.87 Glucose 105 Calcium 8.9 Consult Discharge Plan - Plan Referrals: NONE,PCP [Primary Care Provider] - (3) HTN (hypertension) Qualifiers: Hypertension type: essential hypertension Qualified Code(s): I10 - Essential (primary) hypertension (4) HLD (hyperlipidemia) Qualifiers: Hyperlipidemia type: unspecified Qualified Code(s): E78.5 - Hyperlipidemia, unspecified
[2018-03-18] MEDS: *HR* OxyCODONE Immed Rel 5 MG TABLET PO PRN ×3 (00:13→20:26)
[2018-03-18] MEDS: Heparin 25,000 UNIT/500 ML D5W 25,000 UNIT/500 ML BAG IVC SCH (05:50)
[2018-03-18] MEDS: *HR* HYDROcodone/Acet 5/325 mg TABLET PO PRN ×2 (06:16→16:43)
[2018-03-18] MEDS: Nicotine 21 MG PATCH.TD24 TD SCH (07:33)
[2018-03-18] MEDS: Aspirin 325 MG TABLET PO SCH (07:33)
--- NOTE | 2018-03-18 10:44 | Vascular/[facility] Progress Note ---
Date of Encounter: 03/18/18 Time of Encounter: 10:43 - Assessment and plan (1) Ischemic pain of left foot Current Visit: Yes Status: Resolved 47-year-old white male presents was two-week history of ischemic left lower extremity. His echocardiogram was within normal limits. He CT angiogram of the chest was normal. The patient does not have popliteal artery aneurysm. He complains of slight pain around the left knee. He has no pedal pulses but good strong signals as suspect that his left peroneal artery is patent. His foot is well-perfused. He is fully anticoagulated. He does not have a compartment syndrome. Hematology consulted. They are going to see the patient on an outpatient basis. The patient will most likely needs to be anticoagulated for life. I will wrap his left leg with an Jose bandage between the toes and the knee. We will get physical therapy to ambulate him with a walker. (2) Tobacco abuse Current Visit: Yes Status: Acute Counseled about smoking cessation. - Subjective Interval history: Status post left tibioperoneal embolectomy for ischemic left lower extremity. The patient denies any pain in his left foot. He is able to move his toes. He is able to flex and extend his left ankle. The patient complains of pain in his left calf with ambulation which is expected after this kind of surgery. He has not walked on his left leg yet. He has not been seen by physical therapy. Hematology is to see the patient on an outpatient basis. They have recommended thrombophilia workup and for the patient to be placed on Xarelto. Vital Signs, Last 4 Hours Pulse 03/18/18 07:39 90 - Physical Examination General: Present: Conversant Cardiac: Present: Reg Rate and Rhythm Lungs: Present: Normal Breath Sounds Neuro: Present: Alert and responsive Vascular: Present: Surgical incisions (Clean. Swelling left leg. No pedal pulses. Foot is warm.) Abdomen: Present: Soft Skin: Present: No rashes noted on visualized skin, Wound/ulcer(s) Results 03/17/18 01:16 03/17/18 01:16 Consult Discharge Plan - Plan Referrals: NONE,PCP [Primary Care Provider] -
--- NOTE | 2018-03-18 10:59 | Internal Med Progress Note ---
Hospitalist Progress Note - Encounter Date of Encounter: 03/18/18 Time of Encounter: 10:59 - Subjective Interval History: Seen and evaluated at the bedside with his friend Denies new complains Awaiting PT eval, but ambulatory with some soreness Left leg is perfused Still on heparin infusion - Exam Vitals: Temp Pulse Resp BP Pulse Ox 98.1 F 90 18 122/100 99 03/18/18 06:35 03/18/18 07:39 03/18/18 06:35 03/18/18 06:35 03/18/18 06:35 Exam: Gen - Awake, alert, oriented x 3, no resp distress HEENT - Moist oral mucosa, not jaundiced, not pale Heart -S1, S2, RRR, no m/g/r Chest : Normal inspection Resp - CTAB GI - Benign Skin - No rash Psych -Appropriate affect Extremities: Left leg warm, not cyanotic, pulses present but faint on the Left foot-dorsalis pedis and post tibial. RLE unremarkable. No joint swelling Neuto: AAOX3, moves all extremities, no focal deficits - Assessment and Plan (1) Acute occlusion of artery Current Visit: Yes Status: Acute Assessment and Plan: Status post left tibioperoneal trunk endarterectomy with bovine patch angiopl asty 2 and 3 [place] catheter embolectomy of left anterior tibial, posterior tibial, and peroneal arteries. Patient doing well. Cont IV heparin, HLD tx and smoking cessation. vascular following Hematology consulted per previous hospitalist, will follow patient as out- patient PT eval pending (2) HLD (hyperlipidemia) Current Visit: Yes Status: Chronic Assessment and Plan: Continue lipitor (3) HTN (hypertension) Current Visit: Yes Status: Chronic Assessment and Plan: continue home meds (4) Tobacco abuse Current Visit: Yes Status: Chronic Assessment and Plan: cessation encouraged, continue NRT (5) Ischemic pain of left foot Current Visit: Yes Status: Resolved Assessment and Plan: as in acute arterial occlusion DVT Prophylaxis: On IV Heparin drip. - Time Spent with Patient Total time spent is greater than 50% in coordination of care (as documented) at patient's floor/unit and/or counseling patient: Plan of Care Discussed with: patient Internal Medicine: Result - Labs CBC & Chem 7: 03/17/18 01:16 03/17/18 01:16 Consult Discharge Plan - Plan Referrals: NONE,PCP [Primary Care Provider] - (2) HLD (hyperlipidemia) Qualifiers: Hyperlipidemia type: unspecified Qualified Code(s): E78.5 - Hyperlipidemia, unspecified (3) HTN (hypertension) Qualifiers: Hypertension type: essential hypertension Qualified Code(s): I10 - Essential (primary) hypertension
[2018-03-19] MEDS: *HR* HYDROcodone/Acet 5/325 mg TABLET PO PRN (03:28)
[2018-03-19 04:40] LABS: Hematocrit 32.4 % (37.5-50.1); Hemoglobin 10.5 g/dL (12.9-16.9); Immature Granulocytes % 0.5 % (0-4); Lymphocytes % 28.2 %; Mean Corpuscular HGB Conc 32.4 g/dL (31.6-35.5); Mean Corpuscular Hemoglobin 27.6 pg (28.0-33.3); Mean Platelet Volume 9.4 fL (9.4-12.4); Platelet Count 356 K/mcL (140-400); Red Blood Count 3.81 M/mcL (4.19-5.50); Red Cell Distribution Width 13.4 % (11.5-14.5); Segmented Neutrophils % 59.7 %
[2018-03-19 04:41] LABS: Basophils # 0.1 K/mcL (0.0-0.2); Basophils % 0.5 %; Eosinophils # 0.5 K/mcL (0.0-0.6); Eosinophils % 3.9 %; Lymphocytes # 3.3 K/mcL (0.6-4.6); Monocytes # 0.8 K/mcL (0.0-1.3); Monocytes % 7.2 %; Neutrophils # 6.9 K/mcL (1.6-8.9)
[2018-03-19 05:03] LABS: Alanine Aminotransferase 23 Units/L (7-52); Albumin 3.8 g/dL (3.5-5.7); Albumin/Globulin Ratio 1.5 (1.1-2.2); Alkaline Phosphatase 80 Units/L (34-104); Aspartate Amino Transferase 25 Units/L (13-39); BUN/Creatinine Ratio 16 (6-26); Bilirubin,Total 0.4 mg/dL (0.3-1.0); Blood Urea Nitrogen 12 mg/dL (6-20); Calcium 9.1 mg/dL (8.6-10.3); Carbon Dioxide 25 mEq/L (23-29); Chloride 106 mEq/L (98-107); Globulin 2.6 g/dL (2.4-3.5); Glucose 102 mg/dL (70-105); Osmolality,Calculated 288 (280-300); Potassium 3.8 mEq/L (3.5-5.1); Sodium 139 mEq/L (136-145); Total Protein 6.4 g/dL (6.4-8.9); eGFR For Non-African Americans > 60 (> 60)
[2018-03-19] MEDS: Heparin 25,000 UNIT/500 ML D5W 25,000 UNIT/500 ML BAG IVC SCH (05:26)
[2018-03-19 07:25] VITALS: BP 132/89
[2018-03-19] MEDS: Aspirin 325 MG TABLET PO SCH ×2 (07:56→08:13)
[2018-03-19] MEDS: *HR* OxyCODONE Immed Rel 5 MG TABLET PO PRN (08:12)
[2018-03-19] MEDS: Nicotine 21 MG PATCH.TD24 TD SCH (08:13)
--- NOTE | 2018-03-19 09:59 | Discharge Summary ---
- NOTES TO OUTPATIENT PROVIDER Notes to Outpatient Provider: Admitted for acute arterial occuosion of Left LE, no inciting factors noted. S/P Bypass grafting by vascular. Chest CT unreamrakble. Hematology work up for primary thrombophilia and rheumatologic disorders sent, follow up with PCP and hematology for results. he also had elev ated blood pressure in-patient, he did not require any medications for control, He is discharged on ASA, Xarelto, statin. Follow up with vascular surgery as outpatient Orders not resulted at time of discharge: Pending orders 03/15/18 19:38 Surgical Pathology [PTH] Routine 03/17/18 01:16 HINA IgG CHONG rflx IFA AM 0400 MPO/PR3 (ANCA) Antibodies DAILY 03/17/18 08:49 Beta-2 Glycoprotein 1 IgG,M,A Routine Cardiolipin IGG IGM IGA Routine Factor V Leiden Routine Lupus Anticoagulant Panel Routine Prothrombin [id number] Mutation Routine VDRL Routine 03/19/18 11:30 Heparin anti-factor XA UFH [COAG] Timed Date of Encounter: 03/19/18 Time of Encounter: 09:54 - Discharge Diagnosis (1) Acute occlusion of artery Priority: Primary Status: Acute (2) HLD (hyperlipidemia) Priority: Secondary Status: Chronic Qualifiers: Hyperlipidemia type: unspecified Qualified Code(s): E78.5 - Hyperlipidemia, unspecified (3) HTN (hypertension) Priority: Secondary Status: Chronic Qualifiers: Hypertension type: essential hypertension Qualified Code(s): I10 - Essential (primary) hypertension (4) Tobacco abuse Priority: Secondary Status: Chronic (5) Ischemic pain of left foot Priority: Primary Status: Resolved Hospital course: Mr. Teresa is a 47 year old male with PMH of Tobacco abuse, HTN, HLD, who was transferred from [facility] with complaints of 2 weeks of progressive left leg and foot pain with numbness and coolness. The patient states that he attributed these symptoms to his chronic back pain and did not seek early medical intervention. He went to [facility] [place] where they found he had vascular occlusion proximal to the left leg trifurcation arteries. The patient had labs at the referring ER where the EKG was normal and the white count was high at 13.6. The renal panel was unremarkable with a slightly elevated calcium of 10.3. The patient denies any chest pain or shortness of breath. He denies any previous adverse events to anesthesia. The patient is a one pack per day smoker. Vascular surgery was consulted and patient is Status post left tibioperoneal trunk endarterectomy with bovine patch angioplasty, 2 and 3 [place] catheter embolectomy of left anterior tibial, posterior tibial, and peroneal arteries. HE was on heparin drip till this morning and transitioned to xarelto per hematology recommendations, he also had multiple blood tests to rule out primary thrombophilia. Chest CT was negative He is seen and examined this ambulatory and in no form of distress He is discharged on ASA, Xarelto, Statin, NRT. Follow up with PCP and Hematology/Onc for acute arterial thrombus of unknown cause. Follow up with vascular surgery PT recommended walker/assistive device, prescribed for patient 3mins spent on tobacco cessation counselling Educated on compliance with meds and follow up Discharge discussed with: patient, nurse, social work Time spent discussing smoking cessation with patient: 3 to 10 minutes (3 mins spent on tobacco cessation counselling) - Time Spent with Patient Total time spent providing and/or coordinating discharge services: Less than 30 minutes - Discharge Medications Prescriptions: HYDROcodone/Acet 5/325 mg [[place] 5-325 mg] 1 tab PO Q6HR PRN 5 Days #20 tablet PRN Reason: Moderate Pain Aspirin 325 mg PO DAILY #30 tablet Atorvastatin [Lipitor] 40 mg PO HS #30 tablet Nicotine Patch [Nicoderm] 21 mg TD DAILY #20 patch.td24 Rivaroxaban [Xarelto] 1 dose PO AD 30 Days pack Home Medications: Aspirin 325 mg PO DAILY #30 tablet 03/19/18 [Rx] Atorvastatin [Lipitor] 40 mg PO HS #30 tablet 03/19/18 [Rx] HYDROcodone/Acet 5/325 mg [[place] 5-325 mg] 1 tab PO Q6HR PRN 5 Days #20 tablet 03/19/18 [Rx] Nicotine Patch [Nicoderm] 21 mg TD DAILY #20 patch.td24 03/19/18 [Rx] Rivaroxaban [Xarelto] 1 dose PO AD 30 Days pack 03/19/18 [Rx] Allergies/Adverse Reactions: Allergy/AdvReac Type Severity Reaction Status Date / Time No Known Allergies Allergy Verified 02/11/18 21:12 Date of admission: 03/15/18 16:18 Primary care physician: PCP NONE Consults: 03/16/18 12:47 Consult to Physical Therapy [CONS] Routine Comment: Evaluate, develop and implement POC Reason for Consult: possible rehab Does patient have active BEDREST order?: No Is patient medically & hemodynamically stable?: Yes Patient assessed for mobility or mobilized this visit?: Yes OT [Consult to Occupational Therapy] [CONS] Routine Comment: Evaluate, develop and implement POC Reason for Consult: possible rehab Does patient have active BEDREST order?: No Is patient medically & hemodynamically stable?: Yes Patient assessed for mobility or mobilized this visit?: Yes 03/19/18 08:36 Consult to Special Needs Teacher [CONS] Routine Reason for SW Consult: No insurance, needs help with medications Discharging clinician: Kofi Draper Anticipated date of discharge: 03/19/18 - Constitutional Vitals: Temp Pulse Resp BP Pulse Ox 98.0 F 88 18 132/89 99 03/19/18 07:21 03/19/18 07:21 03/19/18 07:21 03/19/18 07:21 03/19/18 07:21 General appearance: Present: A&O X 3, pleasant, no acute distress Exam: Gen - Awake, alert, oriented x 3, no resp distress HEENT - Moist oral mucosa, not jaundiced, not pale Heart -S1, S2, RRR, no m/g/r Chest : Normal inspection Resp - CTAB GI - Benign Skin - No rash Psych -Appropriate affect Extremities: Left leg warm, not cyanotic, pulses present but faint on the Left foot-dorsalis pedis and post tibial. RLE unremarkable. No joint swelling Neuto: AAOX3, moves all extremities, no focal deficits - Patient Status Disposition: Home, Self-Care Condition: Good Functional capacity at discharge: independent ambulation Overall status at discharge: patient is progressing back to baseline - Discharge Instructions Instructions: Chronic Hypertension (DC) Follow Up With: Alesha Benitez MD [Non-Partnered Physician] - 03/26/18 10:40 am Eliud Cordoba MD [Partnered Physician] - 04/18/18 9:45 am - Diet and Activity Activity: resume usual activities as tolerated Diet: low fat, low cholesterol, low salt diet
[2018-03-19] MEDS ORDERED: *HR* Rivaroxaban 15 MG TABLET PO SCH (10:00)
[2018-03-19 11:10] LABS: ANA IgG by ELISA NONE DETECTED (None Detected); Myeloperoxidase Ab 0 AU/mL (0-19); Serine Protease-3 Antibody 0 AU/mL (0-19)
[2018-03-19 17:59] LABS: APTT (LE Anticoag) 67 sec (32-48); Diluted Russell Viper Venom 27 sec (33-44); LE APTT D Heparin Neutralized 44 sec (32-48); LE Coag Reptilase Time 16.2 sec (<=21.9); PT (LE-Anticoag) 14.3 sec (12.0-15.5); Thrombin Time 32.1 sec (14.7-19.5)
== END 2018-03-19 11:57 | disposition home or self-care (01) | DRG 181 ==
LOC: EMEROOARM 15:32 → SUATTDRO 16:18 → 2NNU 16:18
PROVIDERS: ADMIT Internal Medicine Cardiovascular Disease; ATTEND Internal Medicine

== ENCOUNTER 2018-03-20 14:31 | Inpatient (IN) ==
[2018-03-20] MEDS ORDERED: Isovue-370 500 ML INFUS..BTL IV ONE (15:18)
--- NOTE | 2018-03-20 15:34 | Emergency Department Note ---
Disposition Referrals: Alesha Benitez MD [Primary Care Provider] - General Adult HPI - General Chief complaint: ED Extremity Injury, Lower Stated complaint: Left foot numbness Time Seen by Provider: 03/20/18 14:43 Source: patient Limitations: no limitations - History of Present Illness Pain Scale: 10 - Related Data Previous Rx's Medication Instructions Recorded Aspirin 325 mg PO DAILY #30 tablet 03/19/18 Atorvastatin [Lipitor] 40 mg PO HS #30 tablet 03/19/18 HYDROcodone/Acet 5/325 mg [[place] 1 tab PO Q6HR PRN 5 Days #20 tablet 03/19/18 5-325 mg] Nicotine Patch [Nicoderm] 21 mg TD DAILY #20 patch.td24 03/19/18 Rivaroxaban [Xarelto] 1 dose PO AD 30 Days pack 03/19/18 Allergies Allergy/AdvReac Type Severity Reaction Status Date / Time No Known Allergies Allergy Verified 02/11/18 21:12 Past Medical History - Past Medical History Medical history: Reports: hyperlipidemia, hypertension Surgical history: Reports: orthopedic, other Psychiatric history: Reports: no psych history - Social History Smoking Status: Current every day smoker Smokeless Tobacco Status: No Alcohol use: Reports: occasionally Drug use: Reports: none Physical Exam - General Limitations: no limitations General appearance: alert, in no apparent distress Course Vital Signs Temperature 98.2 F 03/20/18 14:34 Pulse Rate 119 03/20/18 14:34 Respiratory Rate 16 03/20/18 14:34 Blood Pressure 154/82 03/20/18 14:34 O2 Sat by Pulse Oximetry 100 03/20/18 14:34 Temperature 98.2 F 03/20/18 15:01 Pulse Rate 119 03/20/18 15:01 Respiratory Rate 16 03/20/18 15:01 Blood Pressure 154/82 03/20/18 15:01 O2 Sat by Pulse Oximetry 100 03/20/18 15:01 Oxygen Delivery Oxygen Delivery Room Air Attestation Statement - Attestation Attestation: I examined this patient and my medical decision-making was reviewed with the Resident Physician. I agree with the documented findings, disposition and treatment plan as described except to the extent set forth below. Dr. Lennon spoke with Dr. Cordoba, who recommended CTA with runoff. Patient's symptoms replicated his prior episode of thromboembolic lower extremity arterial insufficiency. He has a dopplerable DP pulse, I was not able to find a PT pulse with Doppler. The foot, however, appears well perfused with no change in temperature or color. Despite this, he states that he feels like his toes are ice cold and numb, "like popsicles." Dr. Cordoba has asked that we have the patient admitted to the hospitalist service and consult him. He will review the CTA results compared to his prior CTA.
[2018-03-20 15:39] LABS: Basophils # 0.1 K/mcL (0.0-0.2); Basophils % 0.3 %; Eosinophils # 0.2 K/mcL (0.0-0.6); Eosinophils % 0.9 %; Hematocrit 33.8 % (37.5-50.1); Hemoglobin 11.1 g/dL (12.9-16.9); Immature Granulocytes % 0.4 % (0-4); Lymphocytes # 2.2 K/mcL (0.6-4.6); Lymphocytes % 11.2 %; Mean Corpuscular HGB Conc 32.8 g/dL (31.6-35.5); Mean Corpuscular Hemoglobin 27.8 pg (28.0-33.3); Mean Corpuscular Volume 84.5 fL (83.0-100.0); Mean Platelet Volume 9.1 fL (9.4-12.4); Monocytes # 1.3 K/mcL (0.0-1.3); Monocytes % 6.7 %; Neutrophils # 15.7 K/mcL (1.6-8.9); Platelet Count 397 K/mcL (140-400); Red Cell Distribution Width 13.5 % (11.5-14.5); Segmented Neutrophils % 80.5 %
[2018-03-20] MEDS ORDERED: *HR* FentaNYL (PF) 100 MCG/2 ML VIAL IVP ONE (15:53)
--- NOTE | 2018-03-20 15:56 | Emergency Department Note ---
Disposition Clinical Impression: Arterial occlusion, Hematoma, Paresthesia Leg pain Qualifiers: Laterality: left Qualified Code(s): M79.605 - Pain in left leg Disposition: Admitted As Inpatient Condition: Fair Referrals: Alesha Benitez MD [Primary Care Provider] - Time of Disposition: 17:48 General Adult HPI - General Chief complaint: ED Extremity Injury, Lower Stated complaint: Left foot numbness Time Seen by Provider: 03/20/18 14:43 Source: patient Mode of arrival: ambulatory Limitations: no limitations Nursing Notes Reviewed: Yes Vital Signs Reviewed: Yes - History of Present Illness HPI Narrative: 47-year-old male with significant past medical history with recent trivessel arterial occlusion in the left lower extremity needing emergent vascular intervention presenting to the emergency department chief complaint of left lower extremity pain. Patient was discharged yesterday after his surgery. He states he was feeling okay. He was taking [place] for pain medication. Then, acutely overnight around 4 AM he started having sudden onset left lower extremity pain. This was very similar to when he had his clot. Patient's pain was not controlled with his pain medications at home. He was also having some paresthesias and felt like his foot was cold. He came in for further evaluation. Patient denies any falls or trauma to the area. Patient was worked up extensively when he was admitted to find reasoning for his thromboembolic event but none was ever found. Patient was post follow-up with hematology as an outpatient for further evaluation. Patient has been taking xarelto for anticoagulation. Pain Scale: 10 - Related Data Previous Rx's Medication Instructions Recorded Aspirin 325 mg PO DAILY #30 tablet 03/19/18 Atorvastatin [Lipitor] 40 mg PO HS #30 tablet 03/19/18 HYDROcodone/Acet 5/325 mg [[place] 1 tab PO Q6HR PRN 5 Days #20 tablet 03/19/18 5-325 mg] Nicotine Patch [Nicoderm] 21 mg TD DAILY #20 patch.td24 03/19/18 Rivaroxaban [Xarelto] 1 dose PO AD 30 Days pack 03/19/18 Allergies Allergy/AdvReac Type Severity Reaction Status Date / Time No Known Allergies Allergy Verified 02/11/18 21:12 All systems ED: reviewed and negative except as stated. Constitutional: Denies: fever, chills Eyes: Reports: as per HPI ENT ED: Reports: as per HPI Cardiovascular: Denies: chest pain, palpitations, dyspnea on exertion Respiratory: Denies: cough, dyspnea, wheezes Gastrointestinal: Denies: abdominal pain, nausea, vomiting Genitourinary: Reports: as per HPI Musculoskeletal: Reports: arthralgia, myalgia Integumentary: Reports: as per HPI Neurological: Reports: paresthesias. Denies: weakness Psychiatric: Reports: as per HPI Endocrine: Reports: as per HPI Hematological/Lymphatic: Reports: as per HPI Allergic/Immunologic: Reports: as per HPI Past Medical History - Past Medical History Attestation: Yes The following information was validated with the patient. Medical history: Reports: hyperlipidemia, hypertension Surgical history: Reports: orthopedic, other Psychiatric history: Reports: no psych history - Social History Smoking Status: Current every day smoker Smokeless Tobacco Status: No Alcohol use: Reports: occasionally Drug use: Reports: none Physical Exam - General Limitations: no limitations General appearance: alert, in no apparent distress - Head Head exam: atraumatic, normocephalic, normal inspection - Eye Eye exam: Present: normal appearance. Absent: scleral icterus, conjunctival injection - ENT ENT exam: normal exam, mucous membranes moist - Neck Neck exam: Present: normal inspection, full ROM. Absent: tenderness, meningis mus - Chest Chest inspection: Present: normal inspection, symmetric chest wall rise. Absent: tenderness, rash - Respiratory Respiratory exam: Present: normal lung sounds bilaterally. Absent: respiratory distress, wheezes - Cardiovascular Cardiovascular exam: Present: normal rhythm, tachycardia, normal heart sounds - Abdominal Exam Abdominal exam: Present: soft, Non-Tender. Absent: distention, guarding, rebound - Extremities Exam Extremities exam: Present: full ROM, other (LLE has well healing surgical site on the medial aspect, 1+ pitting edema, ecchymosis noted. Distal pulses intact with doppler, cap refill 3-4 seconds, warm to touch, muscle strength 5/5 ) - Neurological Exam Neurological exam: Present: alert, oriented X3 - Psychiatric Psychiatric exam: Present: normal affect, normal mood - Skin Skin exam: Present: warm, intact Course Course Narrative: 47-year-old male presenting with sudden onset left lower extremity pain. Pat familia recently had try vessel arterial occlusion needing emergent vascular intervention. In the room patient's leg is swollen, painful. Patient appears seizures. Distal pulses not palpable but able to be obtained with Doppler. I spoke with the vascular surgeon who completed the surgery Dr. Cordoba who suggested DVT rule out study along with a CTA with runoff. We will provide the patient with pain medication, perform basic laboratory analysis and imaging. Concern for new occlusion at this time. Patient is alert and oriented 3. Tachycardic but hemodynamically stable. Disposition most likely admission the pending results. Patient agrees with this plan. - Reevaluation(s) Reevaluation #1: Patient's laboratory analysis shows acute leukocytosis. CTA with runoff shows 1. Occlusion of the distal left posterior tibial artery and posterior tibialis secondary to what appears to be acute thromboembolic disease. 2. The left anterior tibial artery is patent and provides blood flow to the dorsalis pedis. 3. Large left calf intramuscular hematoma. No active extravasation. Clinical correlation for signs of compartment syndrome is recommended given the size. 4. In-line three-vessel runoff to the right lower extremity. We spoke with the vascular surgeon on-call Dr. Cordoba who agrees to see the patient directly after the surgical intervention that he is in now. We spoke with him about concern for compartment syndrome versus acute arterial occlusion. He voices understanding. At this time will plan to admit the patient for further evaluation and treatment of his arterial occlusion. Patient remains alert and oriented 3 and hemodynamically stable. Patient agrees with this plan. Vital Signs Temperature 98.2 F 03/20/18 14:34 Pulse Rate 119 03/20/18 14:34 Respiratory Rate 16 03/20/18 14:34 Blood Pressure 154/82 03/20/18 14:34 O2 Sat by Pulse Oximetry 100 03/20/18 14:34 Temperature 98.2 F 03/20/18 15:01 Pulse Rate 119 03/20/18 15:01 Respiratory Rate 16 03/20/18 15:01 Blood Pressure 154/82 03/20/18 15:01 O2 Sat by Pulse Oximetry 100 03/20/18 15:01 Oxygen Delivery Oxygen Delivery Room Air Medical Decision Making - Lab Data Result diagrams: 03/20/18 15:24 03/20/18 15:24 Lab Results 03/20/18 03/20/18 Range/Units 15:24 15:24 WBC 19.5 H D (4.3-11.1) K/mcL RBC 4.00 L (4.19-5.50) M/mcL Hgb 11.1 L (12.9-16.9) g/dL Hct 33.8 L (37.5-50.1) % MCV 84.5 (83.0-100.0) fL MCH 27.8 L (28.0-33.3) pg MCHC 32.8 (31.6-35.5) g/dL RDW 13.5 (11.5-14.5) % Plt Count 397 (140-400) K/mcL MPV 9.1 L (9.4-12.4) fL Immature Gran % 0.4 (0-4) % Seg Neutrophils % 80.5 % Lymphocytes % 11.2 % Monocytes % 6.7 % Eosinophils % 0.9 % Basophils % 0.3 % Neutrophils # 15.7 H (1.6-8.9) K/mcL Lymphocytes # 2.2 (0.6-4.6) K/mcL Monocytes # 1.3 (0.0-1.3) K/mcL Eosinophils # 0.2 (0.0-0.6) K/mcL Basophils # 0.1 (0.0-0.2) K/mcL Sodium 136 (136-145) mEq/L Potassium 3.9 (3.5-5.1) mEq/L Chloride 102 (98-107) mEq/L Carbon Dioxide 25 (23-29) mEq/L BUN 9 (6-20) mg/dL Creatinine 0.75 (0.70-1.30) mg/dL Est GFR ( Amer) > 60 (> 60) Est GFR (Non-Af Amer) > 60 (> 60) BUN/Creatinine Ratio 12 (6-26) Glucose 103 (70-105) mg/dL Calculated Osmolality 281 (280-300) Calcium 9.5 (8.6-10.3) mg/dL
[2018-03-20 15:58] LABS: BUN/Creatinine Ratio 12 (6-26); Blood Urea Nitrogen 9 mg/dL (6-20); Calcium 9.5 mg/dL (8.6-10.3); Carbon Dioxide 25 mEq/L (23-29); Chloride 102 mEq/L (98-107); Glucose 103 mg/dL (70-105); Osmolality,Calculated 281 (280-300); Potassium 3.9 mEq/L (3.5-5.1); Sodium 136 mEq/L (136-145); eGFR For Non-African Americans > 60 (> 60)
[2018-03-20] MEDS ORDERED: *HR* Midazolam HCl 2 MG/2 ML VIAL ONE (18:01)
[2018-03-20] MEDS ORDERED: *HR* Propofol 200 MG/20 ML VIAL IVP ONE (18:01)
[2018-03-20] MEDS ORDERED: *HR* FentaNYL (PF) 100 MCG/2 ML VIAL ONE ×2 (18:01→19:10)
[2018-03-20] MEDS ORDERED: Ondansetron 4 MG/2 ML VIAL ONE ×2 (18:05→19:01)
[2018-03-20] MEDS ORDERED: Lidocaine -MPF 2% 2 ML VIAL ONE (18:05)
[2018-03-20] MEDS ORDERED: Lidocaine -MPF 4% 5 ML AMPUL ONE (18:05)
[2018-03-20] MEDS ORDERED: *HR* Succinylcholine 200 MG/10 ML VIAL IVP ONE (18:05)
--- NOTE | 2018-03-20 18:05 | Anesthesia Evaluation PreOp ---
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 No anesthetic complications.) Alcohol Use: occasionally Drug use: none Medications and Allergies Aspirin 325 mg PO DAILY #30 tablet 03/19/18 [Rx] Atorvastatin [Lipitor] 40 mg PO HS #30 tablet 03/19/18 [Rx] HYDROcodone/Acet 5/325 mg [[place] 5-325 mg] 1 tab PO Q6HR PRN 5 Days #20 tablet 03/19/18 [Rx] Nicotine Patch [Nicoderm] 21 mg TD DAILY #20 patch.td24 03/19/18 [Rx] Rivaroxaban [Xarelto] 1 dose PO AD 30 Days pack 03/19/18 [Rx] Allergy/AdvReac Type Severity Reaction Status Date / Time No Known Allergies Allergy Verified 02/11/18 21:12 - Meds/Allergy Pre-op Review Medications Reviewed: Yes Allergies Reviewed: Yes Beta Blockers on Current Med List: No Anesthesia Results - Labs 03/20/18 15:24 03/20/18 15:24 - Imaging EKG: report reviewed (sinus rhythm) Anesthesia Exam Selected Entries 03/20/18 15:01 Temperature 98.2 F Pulse Rate 119 Respiratory Rate 16 Blood Pressure 154/82 O2 Sat by Pulse Oximetry 100 Laboratory Tests 03/20/18 03/20/18 15:24 15:24 WBC 19.5 H D Hgb 11.1 L Hct 33.8 L Sodium 136 Potassium 3.9 Chloride 102 Carbon Dioxide 25 BUN 9 Creatinine 0.75 Weight: 67 kg BMI 22 NPO (# of Hours): over 8 hours - HEENT Pupil (Motor): Pupils equal Mallampati: I Teeth: Poor dentition Oral Opening: Greater than 3 - Cardiac Rhythm: Regular Murmur: None - Pulmonary Breath Sounds: bilateral Clear Respiratory Effort: Symmetrical Anesthesia Assess/Plan ASA Score: 2, E (Discussed GA, risks. Agreed to proceed.) Level of consciousness: Cooperative Anesthetic Plan: General Monitoring Plan: Standard Monitors Recovery Plan: PACU
[2018-03-20] MEDS ORDERED: Albuterol 2.5 MG/3 ML NEBULIZER IH ONE (18:08)
[2018-03-20] MEDS ORDERED: Vancomycin 1,000 MG VIAL ONE (18:13)
[2018-03-20] MEDS ORDERED: *HR* HYDROmorphone 2 MG/ML SYRINGE ONE (18:29)
[2018-03-20] MEDS ORDERED: Acetaminophen IV 1,000 MG/100 ML INFUS..BTL ONE (18:29)
[2018-03-20] MEDS ORDERED: Dexamethasone 4 MG/ML VIAL ONE (19:01)
--- NOTE | 2018-03-20 19:01 | Vascular/Endovasc Consult Note ---
Date of Encounter: 03/20/18 Time of Encounter: 18:10 Assessment and Plan (1) Hematoma Current Visit: Yes Status: Acute Patient has a left calf hematoma. This is not unexpected in light of the degree of anticoagulation the patient has undergone and his ongoing oral treatment. However because of his new pain and concern we will evacuate this tonight as an emergency. Compartment syndrome is not likely or evidence by physical exam. (2) Leg pain Current Visit: Yes Status: Acute Patient has ongoing left leg pain area and this dates back to 2 weeks and a half ago. Qualifiers: Laterality: left Qualified Code(s): M79.605 - Pain in left leg - History of Present Illness Consult date: 03/20/18 Consult reason: Left leg pain Chief complaint: Left leg pain History of present illness: Mr. Teresa is a 47 year old male Who had been operated on last as an emergency because of diffuse tibial artery occlusions. The patient underwent an extensive and exhaustive tibial artery embolectomy and was placed on anticoagulation. He was discharged home just 24 hours ago. He states that he awoke early this morning and had pain and paresthesias in the left foot. He then came to the ER. The patient was evalu ated by the ER physicians and a CT antrum was obtained. It demonstrated hematoma in the calf. The concern was raised whether this hematoma was contributing to his pain and so therefore vascular surgery was asked to see the patient and evacuated hematoma. Past Med Surg Social Fam HX - Past Medical History Medical history: hyperlipidemia, hypertension Psychiatric history: no psych history - Past Surgical History Surgical History: orthopedic, other Additional surgical history: Spinal fusion. blood clot removal - Social History Smoking Status: Current every day smoker Smokeless Tobacco Status: No Alcohol use: occasionally Drug use: none Medications and Allergies Aspirin 325 mg PO DAILY #30 tablet 03/19/18 [Rx] Atorvastatin [Lipitor] 40 mg PO HS #30 tablet 03/19/18 [Rx] HYDROcodone/Acet 5/325 mg [[place] 5-325 mg] 1 tab PO Q6HR PRN 5 Days #20 tablet 03/19/18 [Rx] Nicotine Patch [Nicoderm] 21 mg TD DAILY #20 patch.td24 03/19/18 [Rx] Rivaroxaban [Xarelto] 1 dose PO AD 30 Days pack 03/19/18 [Rx] Allergy/AdvReac Type Severity Reaction Status Date / Time codeine Allergy Severe Hives Verified 03/20/18 18:22 All Systems Review: The remainder of the systems were reviewed and are negative Exam Vital Signs, Last 4 Hours Temp Pulse Resp BP Pulse Ox 03/20/18 15:01 98.2 F 119 16 154/82 100 General: Present: Conversant, No Apparent Distress HEENT: Present: Atraumatic Neck: Absent: JVD Vascular: Present: Edema (Patient does have edema and tenderness of the left ca lf.), Color/Temperature (The left foot is warm and pink. Patient has 2 second capillary refill. He is here on the dorsum of the toes. There is no signs of compartment syndrome.), Surgical incisions (Left calf surgical incision is clean and dry.) Skin: Present: No rashes noted on visualized skin Consult Discharge Plan - Plan Referrals: Alesha Benitez MD [Primary Care Provider] -
--- NOTE | 2018-03-20 19:40 | Operative Note ---
Date of procedure: 03/20/18 Pre-op diagnosis: left calf hematoma Post-op diagnosis: same Procedure: evacuation of left calf hematoma Complications: 0 Anesthesia: GETA Surgeon: Eliud Cordoba Was there an bakery assistant present: No Estimated blood loss (cc): 0 Specimen: 0 Condition: stable Disposition: PACU Procedure in Detail: History Erasmo Teresa is a 47-year-old white male who comes to the operating room from the emergency room. He states he had a sudden onset of left lower extremity pain with a sensation of coldness to his toes. He had undergone an emergency tibial and tibial peroneal trunk embolectomy last . There is no obvious cause identified for this acute ischemia of the left lower extremity. Should be noted that the patient had symptoms for over 2 weeks before he sought medical attention and had the operation. A CT scan was performed via the ER earlier today which demonstrated a patent embolectomy site with a known occlusion of the distal posterior tibial artery and a hematoma. Because of the onset of pain and there was concern raised that the hematoma may be contributing to his pain and so therefore he comes to the operating room today for evacuation and drainage of the hematoma. Procedure After informed consent was obtained the patient was taken to the operating room. General anesthesia was established. The left lower extremity was sterilely prepped and draped. A timeout protocol was observed. The previous incision on the medial aspect of the left calf was reopened. Upon doing so a large organized hematoma was present in the subfascial area. This was easily evacuated. There were no signs of ongoing bleeding or oozing. The area was then copiously irrigated with antibiotic containing solution. This was performed twice. No signs of bleeding were encountered. Therefore the wound was then reapproximated using absorbable suture. A dry sterile dressing was applied. The patient was then reversed from anesthesia and taken to the recovery room in stable condition. There were no findings to suggest a compartment syndrome. There are no findings to suggest aneurysm or pseudoaneurysm formation.
[2018-03-20] MEDS: *HR* HYDROmorphone 2 MG/ML SYRINGE IVP PRN ×2 (20:07→20:16)
[2018-03-20] MEDS ORDERED: Ondansetron 4 MG/2 ML VIAL IVP PRN (21:13)
[2018-03-20] MEDS ORDERED: Naloxone 0.4 MG/ML INJ IVP PRN ×2 (21:13→22:48)
[2018-03-20] MEDS: *HR* Rivaroxaban 15 MG TABLET PO SCH (21:51)
[2018-03-20] MEDS: *HR* HYDROcodone/Acet 5/325 mg TABLET PO PRN (21:51)
--- NOTE | 2018-03-20 21:58 | Anesthesia Evaluation Post Op ---
Date of Encounter: 03/20/18 Time of Encounter: 20:30 - Vital Signs Vital Signs: Vital Signs/O2 Sat/Glucose, Most Current Temp Pulse Resp BP Pulse Ox 03/20/18 20:35 98.4 F 93 14 139/83 98 03/20/18 20:20 97.8 F 90 14 142/90 96 03/20/18 20:10 93 16 138/89 100 03/20/18 20:00 98 18 128/87 100 03/20/18 19:50 97.4 F L 102 16 135/8 99 - Lungs Lungs: Clear Ascult./Percussion - Airway Airway: Non-obstructed - Cardiovascular Regular Rate - Mental Status Mental Status: Alert & Oriented, Answers Appropriately - Pain Pain Scale: 2 (Pt states 10/10 but rests comfortably and speaks calmly) Pain Scale used: Markel (Faces) - Nausea Vomiting Nausea Vomiting: Not Present - Hydration Hydration: Ice chips, Has not voided - Discharge PostOp Status: Transfer Patient to floor Anes Supervising Prov Stmt: Pt seen/evaluatd, VSS and has met crtieria for discharge to floor. - MD Jan
[2018-03-20] MEDS ORDERED: Ipratropium/Albuterol Neb 3 ML IH PRN (22:48)
--- NOTE | 2018-03-20 23:29 | Internal Med History&Physical ---
Date of Encounter: 03/20/18 Time of Encounter: 22:20 Internal Medicine - H&P: HPI Chief complaint: pain and numbness in left foot Admitted From: Emergency Dept Plans for Post Hospital Care: Home History of present illness: Mr. Teresa is a 47 year old male who was just discharged yesterday after having had surgery a few days ago for limb threatening ischemia. Over the next 24 hours, he developed increasing pain, numbness, and paresthesias of the left foot. He therefore came back to ER today where he was found to have evidence of significant hematoma requiring emergency surgery for evacuation of left calf hematoma by Dr. Rizzo. He was taken to the operating room before hospitalist could see the patient. I saw him shortly after his surgery. He feels much better and has improved pulses in his left foot with mild pain and improved sensation. He denies any fevers, chills, or night sweats. Since his surgery, he already feels much better and is hopeful to return home in the next couple days. Past Med Surg Social Fam HX - Past Medical History Attestation: Yes The following information was validated with the patient. Source: patient, old records reviewed Medical history: hyperlipidemia, hypertension Psychiatric history: no psych history - Past Surgical History Surgical History: orthopedic, other Additional surgical history: Spinal fusion. left leg thrombectomy - Social History Smoking Status: Current every day smoker Smokeless Tobacco Status: No Alcohol use: occasionally Drug use: none Current living situation: Home - Independent Activity Level: Independent ambulation Recent Out of Country Travel Within the Last 8 Weeks: No - Family History Mother Living Status: Still Living Hx Family Cancer: No (no clotting disorders) Father Living Status: Still Living Hx Family Cancer: No (no clotting disorders) Internal Medicine - H&P: Meds Aspirin 325 mg PO DAILY #30 tablet 03/19/18 [Rx] Atorvastatin [Lipitor] 40 mg PO HS #30 tablet 03/19/18 [Rx] HYDROcodone/Acet 5/325 mg [[place] 5-325 mg] 1 tab PO Q6HR PRN 5 Days #20 tablet 03/19/18 [Rx] Nicotine Patch [Nicoderm] 21 mg TD DAILY #20 patch.td24 03/19/18 [Rx] Rivaroxaban [Xarelto] 15 mg PO BID 03/20/18 [History] Allergy/AdvReac Type Severity Reaction Status Date / Time codeine Allergy Severe Hives Verified 03/20/18 18:22 - Constitutional Constitutional: no chills, no fever(s), no night sweats - EENT Eyes: no change in vision Nose, mouth and throat: no nasal congestion, no sore throat - Cardiovascular Cardiovascular ROS IM: no chest pain, no dyspnea - Respiratory Respiratory: no cough, no chest congestion, no excessive phlegm production, no change in phlegm color - Gastrointestinal Gastrointestinal: no abdominal pain, no diarrhea, no vomiting - Genitourinary Genitourinary ROS male: no dysuria, no flank pain, no hematuria - Musculoskeletal Musculoskeletal ROS IM: arthralgias, muscle weakness, numbness, tingling Additional comments: all left foot - Integumentary Integumentary IM: no rash, no jaundice - Neurological Neurological ROS: paresthesias (left foot), no dizziness, no frequent falls, no headache(s) - Psychiatric Psychiatric: no anxiety, no depression - Endocrine Endocrine IM: no polydipsia, no polyphagia, no polyuria - Allergic/Immunologic Allergic/Immunologic: no GI upset with certain foods - Constitutional Vitals: Temp Pulse Resp BP Pulse Ox 98.0 F 83 16 149/97 99 03/20/18 20:50 03/20/18 21:30 03/20/18 20:50 03/20/18 21:30 03/20/18 20:50 General appearance: Present: cooperative, A&O X 3, pleasant, no acute distress, answers questions appropriately Exam: see below - Head Head exam: Present: atraumatic, normal inspection - Eye Eye exam: Present: EOMI, PERRL. Absent: scleral icterus Pupils: Present: normal accommodation - ENT ENT exam: Present: mucous membranes dry, normal exam, normal oropharynx - Neck Neck exam general surgery: Present: full ROM, supple. Absent: tenderness, nucha l rigidity, thyromegaly - Respiratory Respiratory exam: Present: CTAB. Absent: chest wall tenderness, rales, rhonchi, wheezes - Cardiovascular Cardiovascular exam: Present: RRR, +S1, +S2. Absent: diastolic murmur, systolic murmur - GI/Abdominal GI/Abdominal exam: Present: normal bowel sounds, soft. Absent: hepatomegaly, mass, splenomegaly, tenderness - Extremities Exam Extremities exam: Present: calf tenderness (minimal left calf pain now), full ROM, normal capillary refill, warm, radial pulses palpable and symmetrical Additional comments: palpable pulses in both feet; left leg incision clean/dry Internal Med - H&P Results - Labs CBC & Chem 7: 03/20/18 15:24 03/20/18 15:24 Labs: Short CBC 03/20/18 Range/Units 15:24 WBC 19.5 H D (4.3-11.1) K/mcL Hgb 11.1 L (12.9-16.9) g/dL Hct 33.8 L (37.5-50.1) % Plt Count 397 (140-400) K/mcL Neutrophils # 15.7 H (1.6-8.9) K/mcL BMP 03/20/18 15:24 Sodium 136 Potassium 3.9 Chloride 102 Carbon Dioxide 25 BUN 9 Creatinine 0.75 Glucose 103 Calcium 9.5 - Impressions ITS Impressions Aorta w/Runoff CTA 03/20/18 15:18 IMPRESSION: 1. Occlusion of the distal left posterior tibial artery and posterior tibialis secondary to acute thromboembolic disease. 2. The left anterior tibial artery is patent and provides blood flow to the dorsalis pedis. 3. Large left calf intramuscular hematoma. No active extravasation. Clinical correlation for signs of compartment syndrome is recommended given the size. 4. In-line three-vessel runoff to the right lower extremity. Results of this examination were verbally communicated to Nayla Lennon in the [place] ER at 5:28 p.m. on 03/20/2018. D/ / 03/20/2018 17:39:11 Jordan Blackwood MD / [facility] Interpreting Provider: Jordan Balckwood MD - Assessment and plan (1) Hematoma Current Visit: Yes Status: Acute Assessment and plan: 1. S/P evacuation/surgery per Dr. Cordoba. 2. Xarelto resumed per Dr. Cordoba -- will continue given recent arterial occlusion. 3. Monitor clinically for further hematoma development. (2) Paresthesia Current Visit: Yes Status: Acute Assessment and plan: 1. Resolving after surgery. 2. Patient now with minimal parasthesias. (3) Tobacco abuse Current Visit: Yes Status: Chronic Assessment and plan: 1. Nicotine patch ordered. 2. Smoking cessation advised. (4) DVT prophylaxis Current Visit: Yes Status: Acute Assessment and plan: 1. On Xarelto. - VTE Reasons for not Prescribing Prophylaxis: Not indicated-Anticoagulated or INR therapeutic
[2018-03-21] MEDS: *HR* HYDROcodone/Acet 5/325 mg TABLET PO PRN ×2 (04:13→10:21)
[2018-03-21 04:44] LABS: Basophils % 0.2 %; Hematocrit 29.5 % (37.5-50.1); Hemoglobin 9.7 g/dL (12.9-16.9); Immature Granulocytes % 0.4 % (0-4); Lymphocytes # 1.1 K/mcL (0.6-4.6); Lymphocytes % 9.2 %; Mean Corpuscular HGB Conc 32.9 g/dL (31.6-35.5); Mean Corpuscular Hemoglobin 27.7 pg (28.0-33.3); Mean Corpuscular Volume 84.3 fL (83.0-100.0); Mean Platelet Volume 9.4 fL (9.4-12.4); Monocytes # 0.5 K/mcL (0.0-1.3); Neutrophils # 10.6 K/mcL (1.6-8.9); Platelet Count 369 K/mcL (140-400); Red Cell Distribution Width 13.6 % (11.5-14.5); Segmented Neutrophils % 86.2 %
[2018-03-21 05:08] LABS: BUN/Creatinine Ratio 16 (6-26); Blood Urea Nitrogen 12 mg/dL (6-20); Calcium 9.4 mg/dL (8.6-10.3); Carbon Dioxide 25 mEq/L (23-29); Chloride 104 mEq/L (98-107); Glucose 139 mg/dL (70-105); Osmolality,Calculated 284 (280-300); Potassium 4.6 mEq/L (3.5-5.1); Sodium 136 mEq/L (136-145); eGFR For Non-African Americans > 60 (> 60)
[2018-03-21 07:33] VITALS: BP 118/88
--- NOTE | 2018-03-21 08:36 | Vascular/Endovas Progress Note ---
Date of Encounter: 03/21/18 Time of Encounter: 08:34 - Assessment and plan (1) Hematoma Current Visit: Yes Status: Acute Resolution of left calf hematoma. Patient subjectively improved. From a objective standpoint left calf is soft. Patient may ambulate and be discharged when cleared from the medical service. No further intervention is anticipated from a vascular surgery perspective. Patient is still waiting to see the hematology clinic as an outpatient. (2) Leg pain Current Visit: Yes Status: Acute Left calf pain is improved. The catheter is soft. No signs of hematoma. No signs of morbid syndrome. Patient may ambulate. Patient be discharged from a vascular surgery perspective. Qualifiers: Laterality: left Qualified Code(s): M79.605 - Pain in left leg - Subjective Interval history: The patient is postoperative day #1 following evacuation and exploration of left calf. Patient was found to have a hematoma. There is no active bleeding or oozing. The patient no periprocedural complications. This morning the patient states his foot is feeling better. He no longer has the cold sensations in his toes and left foot that he experienced yesterday even though the foot was warm to objective measurement. The patient has not yet been out of bed. Vital Signs, Last 4 Hours Temp Pulse Resp BP Pulse Ox 03/21/18 07:32 97.9 F 98 18 118/88 97 - Physical Examination General: Present: Conversant, No Apparent Distress HEENT: Present: Atraumatic Vascular: Present: Normal capillary refill, Color/Temperature (Left foot is warm and pink), Surgical incisions (A Schnidt is dry dressing over left calf incision) - VTE Reasons for not Prescribing Prophylaxis: Not indicated-Anticoagulated or INR therapeutic Results 03/21/18 03:58 03/21/18 03:58 Lab Results, Last 24 hours 03/20/18 03/20/18 03/21/18 15:24 15:24 03:58 WBC 19.5 H D 12.4 H Hgb 11.1 L 9.7 L Hct 33.8 L 29.5 L Plt Count 397 369 Sodium 136 Potassium 3.9 Chloride 102 Carbon Dioxide 25 BUN 9 Creatinine 0.75 Glucose 103 Calcium 9.5 Magnesium 03/21/18 03/21/18 03:58 03:58 WBC Hgb Hct Plt Count Sodium 136 Potassium 4.6 Chloride 104 Carbon Dioxide 25 BUN 12 Creatinine 0.74 Glucose 139 H Calcium 9.4 Magnesium 2.0 Consult Discharge Plan - Plan Referrals: Alesha Benitez MD [Primary Care Provider] - 03/26/18 10:40 am Eliud Cordoba MD [Partnered Physician] - 04/18/18 9:45 am
[2018-03-21] MEDS ORDERED: Aspirin 325 MG TABLET PO SCH (09:00)
[2018-03-21] MEDS ORDERED: RIVAROXABAN 15 MG PO SCH (09:00)
[2018-03-21] MEDS ORDERED: Nicotine 21 MG PATCH.TD24 TD SCH (09:00)
[2018-03-21] MEDS: *HR* Rivaroxaban 15 MG TABLET PO SCH (09:27)
--- NOTE | 2018-03-21 10:24 | Discharge Summary ---
- NOTES TO OUTPATIENT PROVIDER Notes to Outpatient Provider: none Date of Encounter: 03/21/18 Time of Encounter: 11:00 - Discharge Diagnosis (1) Tobacco abuse Priority: Secondary Status: Chronic (2) Hematoma Priority: Primary Status: Acute (3) Paresthesia Priority: Secondary Status: Acute Hospital course: Patient is a 47-year-old male with past medical history just recently discharged the day prior to this admission after having surgery for lower extremity ischemia. After patient was discharged over the next 24 hours he developed increasing pain and numbness and paresthesias of left foot to decided to come back to the ER for evaluation. In the ER patient was found to have evidence of significant hematoma requiring emergency surgery for evacuation of left calf hematoma by Dr. Rizzo. During patients overnight hospital stay there was no complications and vascular surgery cleared patient for discharge home and to follow-up as an outpatient. - Time Spent with Patient Total time spent providing and/or coordinating discharge services: - Discharge Medications Prescriptions: HYDROcodone/Acet 5/325 mg [[place] 5-325 mg] 1 tab PO Q8HR PRN 4 Days #12 tablet PRN Reason: Moderate Pain Home Medications: Aspirin 325 mg PO DAILY #30 tablet 03/19/18 [Rx] Atorvastatin [Lipitor] 40 mg PO HS #30 tablet 03/19/18 [Rx] HYDROcodone/Acet 5/325 mg [[place] 5-325 mg] 1 tab PO Q6HR PRN 5 Days #20 tablet 03/19/18 [Rx] Nicotine Patch [Nicoderm] 21 mg TD DAILY #20 patch.td24 03/19/18 [Rx] Rivaroxaban [Xarelto] 15 mg PO BID 03/20/18 [History] HYDROcodone/Acet 5/325 mg [[place] 5-325 mg] 1 tab PO Q8HR PRN 4 Days #12 tablet 03/21/18 [Rx] Allergies/Adverse Reactions: Allergy/AdvReac Type Severity Reaction Status Date / Time codeine Allergy Severe Hives Verified 03/20/18 18:22 Date of admission: 03/20/18 18:53 Primary care physician: Alesha Benitez MD - Constitutional Vitals: Temp Pulse Resp BP Pulse Ox 97.9 F 98 18 118/88 99 03/21/18 07:32 03/21/18 07:32 03/21/18 07:32 03/21/18 07:32 03/21/18 09:44 General appearance: Present: cooperative, A&O X 3, pleasant, no acute distress, answers questions appropriately Exam: Gen.: Nonacute distress, alert and oriented 3 Skin: Normal color - Patient Status Disposition: Home, Self-Care Condition: Fair - Discharge Instructions Instructions: How to Stop Smoking (GEN), Deep Venous Thrombosis (GEN) Follow Up With: Alesha Benitez MD [Primary Care Provider] - 03/26/18 10:40 am Eliud Cordoba MD [Partnered Physician] - 04/18/18 9:45 am - VTE Reasons for not Prescribing Prophylaxis: Not indicated-Anticoagulated or INR therapeutic
[2018-04-10] MEDS ORDERED: *HR* Rivaroxaban 10 MG TABLET PO SCH (09:00)
== END 2018-03-21 13:51 | disposition home or self-care (01) | DRG 813 ==
LOC: EMEROOARM 14:31 → 2NNU 14:31 → SUATTDRO 18:10 → 2NNU 18:10
PROVIDERS: ADMIT Internal Medicine; ATTEND Hospitalist

== ENCOUNTER 2020-06-30 20:32 | Inpatient (IN) ==
[2020-06-30] MEDS ORDERED: *HR* Heparin 5,000 UNIT/ML VIAL IVP ONE (22:11)
[2020-06-30] MEDS ORDERED: *HR* Heparin 5,000 UNIT/ML VIAL IVP PRN ×2 (22:11)
[2020-06-30] MEDS ORDERED: Heparin 25,000UNIT/250ML 1/2NS 25,000 UNIT/250 ML IV.SOLN IVC SCH (22:15)
[2020-06-30 22:31] LABS: Basophils # 0.1 K/mcL (0.0-0.2); Basophils % 1.3 %; Eosinophils # 0.3 K/mcL (0.0-0.6); Eosinophils % 2.7 %; Hematocrit 45.6 % (37.5-50.1); Hemoglobin 14.7 g/dL (12.9-16.9); Immature Granulocytes % 0.6 % (0-4); Lymphocytes % 29.5 %; Mean Corpuscular HGB Conc 32.2 g/dL (31.6-35.5); Mean Corpuscular Hemoglobin 28.9 pg (28.0-33.3); Mean Corpuscular Volume 89.6 fL (83.0-100.0); Mean Platelet Volume 9.4 fL (9.4-12.4); Monocytes # 0.9 K/mcL (0.0-1.3); Monocytes % 9.2 %; Neutrophils # 5.8 K/mcL (1.6-8.9); Platelet Count 320 K/mcL (140-400); Red Blood Count 5.09 M/mcL (4.19-5.50); Red Cell Distribution Width 13.7 % (11.5-14.5); Segmented Neutrophils % 56.7 %; White Blood Count 10.2 K/mcL (4.3-11.1)
[2020-06-30 22:46] LABS: Heparin anti-factor XA UFH 0.56 IU/mL (0.30-0.70)
[2020-06-30 22:47] LABS: Activated Partial Thrombo Time 28.6 Seconds (26.0-36.0); INR 1.2; Prothrombin Time 13.8 Seconds (9.4-12.1)
[2020-06-30 22:51] LABS: BUN/Creatinine Ratio 18 (6-26); Blood Urea Nitrogen 17 mg/dL (6-20); Calcium 8.9 mg/dL (8.6-10.3); Carbon Dioxide 26 mEq/L (23-29); Chloride 106 mEq/L (98-107); Glucose 109 mg/dL (70-105); Osmolality,Calculated 292 (280-300); Potassium 3.6 mEq/L (3.5-5.1); Sodium 140 mEq/L (136-145); eGFR For African Americans > 60 (> 60); eGFR For Non-African Americans > 60 (> 60)
[2020-07-01] MEDS ORDERED: Naloxone 0.4 MG/ML INJ IVP PRN (01:03)
[2020-07-01] MEDS ORDERED: Acetaminophen 325 MG TABLET PO PRN (01:23)
[2020-07-01] MEDS ORDERED: Melatonin 3 MG TABLET PO PRN (01:23)
[2020-07-01] MEDS ORDERED: Ondansetron 4 MG/2 ML VIAL IVP PRN (01:23)
[2020-07-01] MEDS: Heparin 25,000UNIT/250ML 1/2NS 25,000 UNIT/250 ML IV.SOLN IVC SCH ×2 (01:33→22:09)
[2020-07-01 03:40] LABS: Basophils # 0.1 K/mcL (0.0-0.2); Basophils % 1.1 %; Eosinophils # 0.5 K/mcL (0.0-0.6); Eosinophils % 4.4 %; Hematocrit 46.2 % (37.5-50.1); Hemoglobin 14.6 g/dL (12.9-16.9); Immature Granulocytes % 0.4 % (0-4); Lymphocytes # 3.3 K/mcL (0.6-4.6); Lymphocytes % 29.8 %; Mean Corpuscular HGB Conc 31.6 g/dL (31.6-35.5); Mean Corpuscular Hemoglobin 29.1 pg (28.0-33.3); Mean Corpuscular Volume 92.2 fL (83.0-100.0); Mean Platelet Volume 9.9 fL (9.4-12.4); Monocytes # 0.8 K/mcL (0.0-1.3); Monocytes % 7.5 %; Neutrophils # 6.3 K/mcL (1.6-8.9); Platelet Count 330 K/mcL (140-400); Red Blood Count 5.01 M/mcL (4.19-5.50); Red Cell Distribution Width 13.7 % (11.5-14.5); Segmented Neutrophils % 56.8 %; White Blood Count 11.2 K/mcL (4.3-11.1)
[2020-07-01 04:01] LABS: Alanine Aminotransferase 50 Units/L (7-52); Albumin 4.5 g/dL (3.5-5.7); Albumin/Globulin Ratio 1.9 (1.1-2.2); Alkaline Phosphatase 87 Units/L (34-104); Aspartate Amino Transferase 32 Units/L (13-39); BUN/Creatinine Ratio 16 (6-26); Bilirubin,Total 0.3 mg/dL (0.3-1.0); Blood Urea Nitrogen 15 mg/dL (6-20); Calcium 9.1 mg/dL (8.6-10.3); Carbon Dioxide 25 mEq/L (23-29); Chloride 107 mEq/L (98-107); Globulin 2.4 g/dL (2.4-3.5); Glucose 92 mg/dL (70-105); Magnesium 2.1 mg/dL (1.6-2.6); Osmolality,Calculated 294 (280-300); Phosphorous 3.6 mg/dL (2.7-4.5); Potassium 3.6 mEq/L (3.5-5.1); Sodium 142 mEq/L (136-145); Total Protein 6.9 g/dL (6.4-8.9); eGFR For African Americans > 60 (> 60); eGFR For Non-African Americans > 60 (> 60)
[2020-07-02 03:21] LABS: Influenza A PCR Negative (Negative); Influenza B PCR Negative (Negative); Resp. Syncytial Virus PCR Negative (Negative)
[2020-07-02 03:24] LABS: SARS-CoV-2 by PCR (In House) Negative (Negative)
[2020-07-02 05:59] LABS: Hematocrit 41.6 % (37.5-50.1); Hemoglobin 13.3 g/dL (12.9-16.9); Mean Corpuscular Hemoglobin 28.7 pg (28.0-33.3); Mean Corpuscular Volume 89.7 fL (83.0-100.0); Mean Platelet Volume 9.6 fL (9.4-12.4); Platelet Count 306 K/mcL (140-400); Red Blood Count 4.64 M/mcL (4.19-5.50); Red Cell Distribution Width 13.5 % (11.5-14.5); White Blood Count 8.7 K/mcL (4.3-11.1)
[2020-07-02 06:11] LABS: BUN/Creatinine Ratio 14 (6-26); Blood Urea Nitrogen 12 mg/dL (6-20); Calcium 8.6 mg/dL (8.6-10.3); Carbon Dioxide 25 mEq/L (23-29); Chloride 108 mEq/L (98-107); Glucose 97 mg/dL (70-105); Magnesium 1.9 mg/dL (1.6-2.6); Osmolality,Calculated 286 (280-300); Potassium 4.1 mEq/L (3.5-5.1); Sodium 138 mEq/L (136-145); eGFR For African Americans > 60 (> 60); eGFR For Non-African Americans > 60 (> 60)
[2020-07-02] MEDS ORDERED: CeFAZolin Syr 2,000MG/20 ML 2,000 MG/20 ML SYRINGE IVPB ONE (15:00)
[2020-07-02] MEDS ORDERED: ceFAZolin 1,000 MG, Sodium Chloride IRRigation 1,000 ML IR ONE ×2 (17:30→22:31)
[2020-07-02] MEDS ORDERED: *HR* HYDROmorphone (PF) 1 MG/ML SYRINGE IVP PRN ×2 (18:13→22:31)
[2020-07-02] MEDS ORDERED: *HR* Meperidine 25 MG/ML SYRINGE IVP PRN ×2 (18:13→22:31)
[2020-07-02] MEDS ORDERED: Ondansetron 4 MG/2 ML VIAL IVP PRN ×3 (18:13→22:31)
[2020-07-02] MEDS ORDERED: Lidocaine HCL 4 ML Topical Solution (Laryng-O-Jet Kit Sterile Pak) TP ONE (18:18)
[2020-07-02] MEDS ORDERED: *HR* Rocuronium Bromide 50 MG/5 ML VIAL ONE (18:18)
[2020-07-02] MEDS ORDERED: *HR* Propofol 200 MG/20 ML VIAL IVP ONE (18:18)
[2020-07-02] MEDS ORDERED: *HR* FentaNYL (PF) 100 MCG/2 ML VIAL ONE (18:18)
[2020-07-02] MEDS ORDERED: Lidocaine -MPF 2% 2 ML VIAL ONE (18:18)
[2020-07-02] MEDS ORDERED: Acetaminophen IV 1,000 MG/100 ML BAG IVPB ONE (18:29)
[2020-07-02] MEDS ORDERED: Heparin 1,000 UNITS/500 mL 500 ML ONE (18:52)
[2020-07-02] MEDS ORDERED: Ondansetron 4 MG/2 ML VIAL ONE (19:25)
[2020-07-02] MEDS ORDERED: Dexamethasone 4 MG/ML VIAL ONE (19:25)
[2020-07-02] MEDS ORDERED: *HR* PHENYLEPHRINE 1,000 MCG/10 ML SYRINGE IVP ONE (20:47)
[2020-07-02] MEDS ORDERED: Neostigmine Methylsulfate 3 MG/3 ML SYRINGE ONE (21:08)
[2020-07-02] MEDS: Heparin 25,000UNIT/250ML 1/2NS 25,000 UNIT/250 ML IV.SOLN IVC SCH (21:53)
[2020-07-02] MEDS ORDERED: *HR* Heparin 5,000 UNIT/ML VIAL IVP PRN ×2 (22:31)
[2020-07-02] MEDS ORDERED: Naloxone 0.4 MG/ML INJ IVP PRN ×2 (22:31)
[2020-07-02] MEDS ORDERED: *HR* OxyCODONE Immed Rel 5 MG TABLET PO PRN (22:31)
[2020-07-02] MEDS ORDERED: Heparin 25,000UNIT/250ML 1/2NS 25,000 UNIT/250 ML IV.SOLN IVC SCH (22:31)
[2020-07-02] MEDS ORDERED: *HR* HYDROcodone/Acet 5/325 mg TABLET PO PRN (22:31)
[2020-07-02] MEDS ORDERED: Acetaminophen 325 MG TABLET PO PRN (22:31)
[2020-07-02] MEDS ORDERED: Melatonin 3 MG TABLET PO PRN (22:31)
[2020-07-03] MEDS: CeFAZolin 2 GM/120 ML BAG IVPB SCH ×2 (03:55→11:33)
[2020-07-03 05:53] LABS: Basophils % 0.4 %; Eosinophils % 0.1 %; Hematocrit 41.5 % (37.5-50.1); Hemoglobin 13.4 g/dL (12.9-16.9); Immature Granulocytes % 0.5 % (0-4); Lymphocytes # 2.2 K/mcL (0.6-4.6); Lymphocytes % 20.5 %; Mean Corpuscular HGB Conc 32.3 g/dL (31.6-35.5); Mean Corpuscular Hemoglobin 28.8 pg (28.0-33.3); Mean Corpuscular Volume 89.1 fL (83.0-100.0); Mean Platelet Volume 9.8 fL (9.4-12.4); Monocytes # 0.6 K/mcL (0.0-1.3); Monocytes % 5.2 %; Neutrophils # 7.8 K/mcL (1.6-8.9); Platelet Count 300 K/mcL (140-400); Red Blood Count 4.66 M/mcL (4.19-5.50); Red Cell Distribution Width 13.2 % (11.5-14.5); Segmented Neutrophils % 73.3 %; White Blood Count 10.6 K/mcL (4.3-11.1)
[2020-07-03 06:12] LABS: BUN/Creatinine Ratio 16 (6-26); Blood Urea Nitrogen 13 mg/dL (6-20); Carbon Dioxide 24 mEq/L (23-29); Chloride 106 mEq/L (98-107); Glucose 117 mg/dL (70-105); Osmolality,Calculated 283 (280-300); Potassium 4.5 mEq/L (3.5-5.1); Sodium 136 mEq/L (136-145); eGFR For African Americans > 60 (> 60); eGFR For Non-African Americans > 60 (> 60)
[2020-07-03] MEDS ORDERED: cilostazoL 100 MG TABLET PO SCH (09:30)
[2020-07-03 11:18] VITALS: BP 126/74
== END 2020-07-03 13:08 | disposition home or self-care (01) | DRG 181 ==
LOC: 2NENU 20:32 → EMEROOARM 20:32 → SUATTDRO 23:27 → 2NENU 07-01 00:20 → 2NNU 07-02 19:23
PROVIDERS: ADMIT Internal Medicine; ATTEND Internal Medicine